=== PATIENT | male | born 1945 | race Hispanic/Latino ===

== ENCOUNTER 2018-06-15 10:30 | Day surgery (SDC) | payer OTHER ==
--- OUTSIDE RECORDS SUMMARY | 2018-06-15 10:32 | XMS REPORT | Clinical Summary ---
:1945 Author Organization [facility] Address [address] [place] [address] Care Team Providers Name Role Phone Asked, No Pcp Primary Care Provider Unavailable Allergies No Known Allergies Current Medications Prescription Sig. Disp. Refills Start Date End Date Status tamsulosin (FLOMAX) 0.4 mg Take 0.4 mg by Active capsule,extended release mouth daily. 24hr olmesartan (BENICAR) 40 MG Take 40 mg by Active tablet mouth daily. niacin 500 MG tablet Take 500 mg by Active mouth daily with breakfast. magnesium oxide 250 mg Take 250 mg by Active tablet mouth daily. Active Problems Problem Noted Date GI bleed 09/17/2016 Gastric cancer (HCC) 05/21/2016 Encounters Date Type Specialty Care Team Description 05/21/2018 Lab Lab Kell Mace MD after 06/14/2017 Immunizations Name Dates Previously Given Next Due INFLUENZA QUAD PF 09/21/2016 Family History Medical History Relation Name Comments Cancer Brother Cancer Mother Cancer Sister Relation Name Status Comments Brother Mother Sister Social History Tobacco Use Types Packs/Day Years Used Date Former Smoker Quit: 2003 Alcohol Use Drinks/Week oz/Week Comments No Sex Assigned at Date Recorded Not on file Last Filed Vital Signs Not on file Plan of Treatment Health Maintenance Due Date Last Done Comments COLON CANCER SCREENING 12/03/1997 SHINGRIX VACCINE (#1) 12/03/1997 ZOSTER VACCINE 2007 PNEUMOCOCCAL POLYSACCHARIDE VACCINE AGE 65 AND OVER 12/03/2012 PNEUMOCOCCAL-13 12/03/2012 INFLUENZA VACCINE 04/01/2018 09/21/2016 Procedures Procedure Name Priority Date/Time Associated Diagnosis Comments TRANSFUSE RED BLOOD Routine 05/06/2018 5:29 PM CDT CELLS after 06/14/2017 Results Transfuse RBC (05/06/2018 5:29 PM)after 06/14/2017 Insurance Payer Benefit Plan / Group Subscriber ID Type Phone Address [facility] xxxxxxxxx O [phone] [place] [phone]
[2018-06-15 10:57] LABS: Absolute Lymphocytes (CBC) 1.1 K/uL (0.7-4.9); Absolute Monocytes 0.4 K/uL (0.1-1.3); Basophils % 0.6 % (0-1.3); Eosinophils % 1.8 % (0-4.4); Hematocrit 39.7 % (39.6-49.0); Lymphocytes % 24.2 % (15.3-44.8); MCH 30.4 pg (27.0-35.0); MCV 89.3 fL (80-100); MPV 7.9 fL (7.6-11.3); Monocytes % 9.4 % (3.3-12.3); RBC Red Blood Cell Count 4.44 M/uL (4.33-5.43)
[2018-06-15 11:12] LABS: BUN Blood Urea Nitrogen 14 mg/dL (7-18); Bicarbonate 33 mmol/L (21-32); Glucose Level 87 mg/dL (74-106); Potassium 3.3 mmol/L (3.5-5.1); Sodium Level 142 mmol/L (136-145)
[2018-06-15] MEDS ORDERED: CEFAZOLIN/SWI 1gm 1 GM/10 ML SYR ONE (11:13)
[2018-06-15] MEDS ORDERED: Ringers Lactate 1,000 ML IV ONE (11:13)
[2018-06-15] MEDS ORDERED: HEPARIN 5000 UNIT/ML 1 ML VIAL ONE (11:37)
[2018-06-15] MEDS ORDERED: NS 0.9% VIAL 10 ML ONE ×2 (11:37→11:39)
[2018-06-15] MEDS ORDERED: LIDOCAINE 1% MPF 30 ML VIAL ONE (11:37)
[2018-06-15] MEDS ORDERED: LIDOCAINE 2% MPF 5 ML VIAL ONE (11:43)
[2018-06-15] MEDS ORDERED: PROPOFOL 200 MG/20 ML VIAL IV ONE ×2 (11:43→12:28)
[2018-06-15] MEDS ORDERED: FENTANYL CITR 100 MCG/2 ML ONE (11:43)
--- NOTE | 2018-06-15 12:47 | RAD REPORT ---
EXAM DESCRIPTION: RAD - Fluoroscopy <1 Hour - 06/15/2018 12:41 pm FINDINGS: Two portable C-arm views were obtained during a fluoroscopic assisted placement of a right -sided Port-A-Cath. Fluoro time was 0.2 minutes. No suspicious or unexpected finding.
--- NOTE | 2018-06-15 13:09 | RAD REPORT ---
EXAM DESCRIPTION: RAD - Chest Single View - 06/15/2018 1:04 pm CLINICAL HISTORY: s/p port a cath placement Chest pain. COMPARISON: Chest Pa And Lat (2 Views) dated 05/07/2016 FINDINGS: Portable technique limits examination quality. Right-sided venous catheter its tip in the SVC. No pneumothorax is present. The lungs are grossly rob ar. The heart is normal in size. No displaced fractures. IMPRESSION: No postprocedure pneumothorax.
--- NOTE | 2018-06-16 | OP ---
Date of Procedure: 06/15/2018 Surgeon: Gregg Mendieta MD Preoperative Diagnosis: Recurrent stomach cancer. Postoperative Diagnosis: Recurrent stomach cancer. Procedure: Placement of right IJ Port-A-Cath and interpretation of intraoperative fluoroscopy. Estimated Blood Loss: Minimal. Specimen: None. Findings: Normal anatomy. Anesthesia: MAC. Complications: None. Disposition: The patient tolerated the procedure well in stable condition and taken to recovery in g ood general condition. Operative Note: The patient was brought to the OR and placed in the supine position. MAC anesthesia was begun. The patient was prepped and draped in the usual sterile fashion. Lidocaine 1% was infil trated locally. An 18-gauge needle was used to access the right IJ vein. Guidewire was passed. Pos ition was confirmed with fluoroscopy. A 3 cm counterincision was made on the right anterior chest. Pocket was created. Tunneling device was used to tunnel the catheter between the 2 wounds and then S eldinger technique was used. Tip of the catheter was placed in the SVC under fluoroscopy and then ca theter was cut to appropriate size and attached to the Port-A-Cath device. Port-A-Cath device was at tached to subcutaneous tissue with 3-0 Vicryl and 3-0 chromic was used to approximate the subcutaneou s tissue and close the skin. Sterile dressing was applied. Catheter was flushed with heparin and pa cked with heparin. The patient tolerated the procedure well in stable condition and taken to recover y in good general condition. Discharge Note: The patient will go to day surgery and home when stable. Disposition: Home. Condition: Stable. Discharge Instructions: Resume home medications and diet. Activity as tolerated. No heavy lifting. Remove outer dressing in 2 days. Shower. Keep wound clean and dry. Keep Steri-Strips on at all t imes. Follow up in my office in 2 weeks. Follow up [facility]. Tylenol No. 3, 1 tablet p.o. q.4 p.r.n. pain. /MODL Voice ID: [id number] Report ID: [id number]
[2018-06-16 14:36] VITALS: BP 132/64; TEMP 97.5; O2SAT 97
== END 2018-06-15 13:50 | disposition home or self-care (01) ==
LOC: OR 10:30
PROVIDERS: ATTEND Surgery
PROC: 0JH60WZ Insertion of Totally Implantable Vascular Access Device into Chest Subcutaneous Tissue and Fascia, Open Approach (ICD-10-PCS; principal; 2018-06-15 12:15)
DX: C16.9 Malignant neoplasm of stomach, unspecified (principal)
CPT/HCPCS: 36415; 36561; 71045; 80048; 85025; C1788; J0690; J1644; J3010; 76000

== ENCOUNTER 2018-11-21 22:58 | Inpatient (IN) | payer OTHER ==
--- OUTSIDE RECORDS SUMMARY | 2018-11-21 23:00 | XMS REPORT | Clinical Summary ---
:1945 Author Organization [facility] Address [address] [place] [address] Care Team Providers Name Role Phone Katrin Schafer MD Primary Care Provider Allergies No Known Allergies Medications Medication Sig Dispensed Refills Start Date End Date Status tamsulosin (FLOMAX) 0.4 Take 0.4 mg by 0 Active mg capsule,extended mouth daily. release 24hr olmesartan (BENICAR) 40 Take 40 mg by 0 Active MG tablet mouth daily. niacin 500 MG tablet Take 500 mg by 0 Active mouth daily with breakfast. magnesium oxide 250 mg Take 250 mg by 0 Active tablet mouth daily. Active Problems Problem Noted Date GI bleed 09/17/2016 Gastric cancer 05/21/2016 Encounters Date Type Specialty Care Team Description 05/21/2018 Lab Lab Kell Mace MD after 11/20/2017 Immunizations Name Dates Previously Given Next Due INFLUENZA QUAD PF 09/21/2016 Family History Medical History Relation Name Comments Cancer Brother Cancer Mother Cancer Sister Relation Name Status Comments Brother Mother Sister Social History Tobacco Use Types Packs/Day Years Used Date Former Smoker Quit: 2003 Alcohol Use Drinks/Week oz/Week Comments No Sex Assigned at Date Recorded Not on file Job Start Date Occupation Industry Not on file Not on file Not on file Travel History Travel Start Travel End No recent travel history available. Last Filed Vital Signs Not on file Plan of Treatment Date Type Specialty Care Team Description 12/07/2018 [place] [address] [facility] [address] [place] [id number] Health Maintenance Due Date Last Done Comments COLON CANCER SCREENING 12/03/1997 SHINGLES VACCINES (#1) 12/03/1997 65+ PNEUMOCOCCAL VACCINE (1 of 2 - PCV13) 12/03/2012 PNEUMOCOCCAL POLYSACCHARIDE VACCINE AGE 65 AND OVER 12/03/2012 INFLUENZA VACCINE 04/01/2018 09/21/2016 Procedures Procedure Name Priority Date/Time Associated Diagnosis Comments TRANSFUSE RED BLOOD Routine 05/06/2018 5:29 PM CDT CELLS after 11/20/2017 Results Transfuse RBC (05/06/2018 5:29 PM CDT)after 11/20/2017 Insurance Payer Benefit Plan / Group Subscriber ID Type Phone Address [facility] xxxxxxxxx HMO Advance Directives Patient has advance care planning documents on file. For more information, please contact:Hemanth Martinez[address] [place] [address]
[2018-11-22] MEDS ORDERED: ACETAMINOPHEN 500 MG TAB ONE (00:06)
[2018-11-22 00:34] LABS: ALT/SGPT 42 U/L (12-78); AST/SGOT 44 U/L (15-37); Albumin 3.2 g/dL (3.4-5.0); Alkaline Phosphatase 205 U/L (45-117); BUN Blood Urea Nitrogen 12 mg/dL (7-18); Bicarbonate 29 mmol/L (21-32); Bilirubin Total 0.9 mg/dL (0.2-1.0); Glucose Level 110 mg/dL (74-106); Potassium 4.1 mmol/L (3.5-5.1); Protein, Total 6.3 g/dL (6.4-8.2); Sodium Level 139 mmol/L (136-145)
[2018-11-22 01:11] LABS: Absolute Lymphocytes (CBC) 0.3 K/uL (0.7-4.9); Absolute Neutrophil 0.3 K/uL (1.8-8.0); Basophils % 1.2 % (0-1.3); Eosinophils % 0.4 % (0-4.4); Hematocrit 36.4 % (39.6-49.0); Lymphocytes % 43.3 % (15.3-44.8); MPV 8.6 fL (7.6-11.3); Monocytes % 4.2 % (3.3-12.3); RBC Red Blood Cell Count 3.78 M/uL (4.33-5.43)
[2018-11-22 01:17] LABS: Blood Morphology Comment NOT SEEN (NOT SEEN); Platelet Estimate DECR
[2018-11-22 02:10] LABS: Urine Appearance CLEAR; Urine Bilirubin NEGATIVE (NEG); Urine Blood NEGATIVE (NEG); Urine Color YELLOW; Urine Glucose NEGATIVE (NEG); Urine Protein TRACE (NEG); Urine Specific Gravity 1.015 (1.005-1.030); Urine pH 7.5 (5.0-7.0)
[2018-11-22 02:21] LABS: Urine Microscopic Reflex NO UMIC
--- NOTE | 2018-11-22 02:25 | EDPHYS ---
Physician Documentation [facility] Name: Zachariah Ball Age: 72 yrs Sex: Male : 1945 Arrival Date: 11/21/2018 Time: 23:02 Bed 15 Private MD: Katrin Schafer ED Physician Otis Barraza HPI: 11/22 04:08 This 72 yrs old Male presents to ER via Ambulatory with complaints of Urinary tw4 Problem, Fever, Weakness. 04:08 The patient reports fever, not measured (subjective). Onset: The symptoms/episode tw4 began/occurred today. Modifying factors: there are no obvious modifying factors. Associated signs and symptoms: Pertinent positives:. Severity of symptoms: At their worst the symptoms were moderate in the emergency department the symptoms are unchanged. The patient has not experienced similar symptoms in the past. Historical: - Allergies: 11/21 23:17 loratadine; jb4 - Home Meds: 23:17 tamsulosin 0.4 mg Oral cp24 1 cap once daily [Active]; sucralfate 1 gram Oral tab jb4 [Active]; amlodipine 2.5 mg tab [Active]; omeprazole 40 mg Oral cpDR [Active]; magnesium oxide 250 mg Oral tab [Active]; niacin 500 mg Oral cpER [Active]; stool softner [Active]; finasteride 5 mg oral tab [Active]; potassium chloride 20 mEq Oral pack [Active]; - PMHx: 23:17 Anemia; Chemo and Radiation Tx (Started August 2016/Diagnosed with Stomach Cancer jb4 May 2016); Hypertension; neuropathy; stomach cancer; ADD/ADHD; - PSHx: 23:17 stomach; jb4 - Immunization history:: Adult Immunizations up to date, Pneumococcal vaccine is up to date, Flu vaccine is not up to date. - Social history:: Smoking status: Patient/guardian denies using tobacco, Patient/guardian denies using alcohol. - Ebola Screening: : No symptoms or risks identified at this time. ROS: 11/22 04:08 Eyes: Negative for injury, pain, redness, and discharge, ENT: Negative for injury, tw4 pain, and discharge, Cardiovascular: Negative for chest pain, palpitations, and edema, Respiratory: Negative for shortness of breath, cough, wheezing, and pleuritic chest pain, Abdomen/GI: Negative for abdominal pain, nausea, vomiting, diarrhea, and constipation, Back: Negative for injury and pain. MS/Extremity: Negative for injury and deformity, Skin: Negative for injury, rash, and discoloration, Neuro: Negative for headache, weakness, numbness, tingling, and seizure. Constitutional: Positive for malaise. : Positive for difficulty urinating. Exam: 04:08 Constitutional: This is a well developed, well nourished patient who is awake, alert, tw4 and in no acute distress. Head/Face: Normocephalic, atraumatic. Cardiovascular: Regular rate and rhythm with a normal S1 and S2. No gallops, murmurs, or rubs. Normal PMI, no JVD. No pulse deficits. Respiratory: Lungs have equal breath sounds bilaterally, clear to auscultation and percussion. No rales, rhonchi or wheezes noted. No increased work of breathing, no retractions or nasal flaring. Abdomen/GI: Soft, non-tender, with normal bowel sounds. No distension or tympany. No guarding or rebound. No evidence of tenderness throughout. Back: No spinal tenderness. No costovertebral tenderness. Full range of motion. MS/ Extremity: Pulses equal, no cyanosis. Neurovascular intact. Full, normal range of motion. Neuro: Awake and alert, GCS 15, oriented to person, place, time, and situation. Cranial nerves II-XII grossly intact. Motor strength 5/5 in all extremities. Sensory grossly intact. Cerebellar exam normal. Normal gait. Vital Signs: 11/21 23:17 BP 153 / 91; Pulse 100; Resp 18; Temp 101.2(O); Pulse Ox 95% on R/A; Weight 67.59 kg jb4 (R); Height 5 ft. 10 in. (177.80 cm) (R); Pain 06/10; 11/22 00:30 BP 129 / 62; Pulse 85; Resp 16; Pulse Ox 96% on R/A; jb4 02:00 BP 113 / 71; Pulse 72; Resp 16; Temp 98.8(O); Pulse Ox 96% on R/A; jb4 03:34 BP 127 / 76; Pulse 73; Resp 16; Pulse Ox 98% on R/A; jb4 11/21 23:17 Body Mass Index 21.38 (67.59 kg, 177.80 cm) jb4 MDM: 11/21 23:13 Patient medically screened. tw11/22 04:10 Differential diagnosis: viral Infection, bacterial infection, URI, bronchitis. Data tw4 reviewed: vital signs, nurses notes. Data interpreted: Pulse oximetry: Interpretation: normal. Counseling: I had a detailed discussion with the patient and/or guardian regarding: the historical points, exam findings, and any diagnostic results supporting the discharge/admit diagnosis, lab results, radiology results. Physician consultation: Makayla Hernandez MD was contacted at 02:50, regarding admission, patient's condition, and will see patient in inpatient room. 11/21 23:40 Order name: CBC with Diff 11/22 01:18 Interpretation: WBC 0.6; RBC 3.78; HGB 12.3; HCT 36.4; MCV 96.3; NEUT A 0.3; PLT 116; tw4 LYMA 0.3; BASO% 1.2. 11/21 23:40 Order name: CMP; Complete Time: 01:17 11/22 01:17 Interpretation: A/G 1.0; CA 8.0; ALK 205; AST 44; TP 6.3; ALB 3.2. 11/22 01:15 Order name: Manual Differential EDMS 11/22 01:20 Order name: Blood Culture Adult (2) 11/22 01:20 Order name: Lactate 11/22 01:28 Order name: Urinalysis 11/22 01:28 Order name: Urine Microscopic Only 11/22 02:07 Order name: Chest Single View XRAY 11/22 04:23 Order name: Urine Dipstick--Ancillary (enter results) ar5 Administered Medications: 11/21 23:58 Drug: Tylenol 1000 mg Route: PO; jb4 11/22 01:00 Follow up: Response: No adverse reaction; Temperature is decreased 4 02:30 Drug: Zosyn 3.375 grams Route: IVPB; Infused Over: 60 mins; Site: right antecubital; jb4 03:30 Follow up: Response: No adverse reaction; IV Status: Completed infusion; IV Intake: jb4 100ml 03:40 Drug: vancoMYCIN 1 grams Route: IVPB; Infused Over: 2 hrs; Site: right antecubital; jb4 04:06 Follow up: Response: No adverse reaction; IV Status: Infusion continued upon admission jb4 Disposition: 11/22/18 02:25 Hospitalization ordered by Makayla Hernandez for Inpatient Admission. Preliminary diagnosis are Neutropenia, unspecified, Fever, unspecified. - Bed requested for Telemetry/MedSurg (Inpatient). - Status is Inpatient Admission. jb4 - Condition is Fair. - Problem is new. - Symptoms are unchanged. UTI on Admission? No Signatures: Dispatcher [employer] EDBlessing Erazo, RN RN Yogesh Covarrubias RN RN jb4 Otis Barraza MD MD 4 Corrections: (The following items were deleted from the chart) 01:18 01:18 WBC 0.6; RBC 3.78; HGB 12.3; HCT 36.4; MCV 96.3; NEUT A 0.3; PLT 116. tw4 tw4 03:10 02:25 Hospitalization Ordered by Makayla Hernandez MD for Inpatient Admission. Preliminary cg diagnosis is Neutropenia, unspecified; Fever, unspecified. Bed requested for Telemetry/MedSurg (Inpatient). Status is Inpatient Admission. Condition is Fair. Problem is new. Symptoms are unchanged. UTI on Admission? No. tw4 04:27 03:10 11/22/2018 02:25 Hospitalization Ordered by Makayla Hernandez MD for Inpatient jb4 Admission. Preliminary diagnosis is Neutropenia, unspecified; Fever, unspecified. Bed requested for Telemetry/MedSurg (Inpatient). Status is Inpatient Admission. Condition is Fair. Problem is new. Symptoms are unchanged. UTI on Admission? No. cg
--- NOTE | 2018-11-22 02:25 | ER ---
Nurse's Notes [facility] Name: Zachariah Ball Age: 72 yrs Sex: Male : 1945 Arrival Date: 11/21/2018 Time: 23:02 Bed 15 Private MD: Katrin Schafer Diagnosis: Neutropenia, unspecified;Fever, unspecified Presentation: 11/21 23:17 Presenting complaint: Patient states: I have been unable to urinate since 1500 today. jb4 Transition of care: patient was not received from another setting of care. 23:17 Method Of Arrival: Ambulatory jb4 23:17 Onset of symptoms was November 21, 2018. Risk Assessment: Do you want to hurt yourself or jb4 someone else? Patient reports no desire to harm self or others. Initial Sepsis Screen: Does the patient meet any 2 criteria? Temp <36.0*C (96.8*F)) or > 38.3*C (100.9*F). HR > 90 bpm. Yes Does the patient have a suspected source of infection? No. Patient's initial sepsis screen is negative. Care prior to arrival: None. 23:17 Acuity: MONSE 3 jb4 Historical: - Allergies: 23:17 loratadine; jb4 - Home Meds: 23:17 tamsulosin 0.4 mg Oral cp24 1 cap once daily [Active]; sucralfate 1 gram Oral tab jb4 [Active]; amlodipine 2.5 mg tab [Active]; omeprazole 40 mg Oral cpDR [Active]; magnesium oxide 250 mg Oral tab [Active]; niacin 500 mg Oral cpER [Active]; stool softner [Active]; finasteride 5 mg oral tab [Active]; potassium chloride 20 mEq Oral pack [Active]; - PMHx: 23:17 Anemia; Chemo and Radiation Tx (Started August 2016/Diagnosed with Stomach Cancer jb4 May 2016); Hypertension; neuropathy; stomach cancer; ADD/ADHD; - PSHx: 23:17 stomach; jb4 - Immunization history:: Adult Immunizations up to date, Pneumococcal vaccine is up to date, Flu vaccine is not up to date. - Social history:: Smoking status: Patient/guardian denies using tobacco, Patient/guardian denies using alcohol. - Ebola Screening: : No symptoms or risks identified at this time. Screenin:17 Abuse screen: Denies threats or abuse. Nutritional screening: No deficits noted. jb4 Tuberculosis screening: No symptoms or risk factors identified. Fall Risk IV access (20 points). Ambulatory Aid- Crutches/Cane/Walker (15 pts). Gait- Normal/Bed Rest/Wheelchair (0 pts) Total Sotomayor Fall Scale indicates Low Risk Score (25-44 pts). Fall prevention measures have been instituted. Side Rails Up X 2 Placed close to Nursing Station Frequent Obs/Assesments occuring Family Present and informed to notify staff if they need to leave bedside. Assessment: 23:30 General: Appears uncomfortable, Behavior is calm, cooperative, appropriate for age. jb4 Pain: Complains of pain in groin, headache Pain does not radiate. Pain currently is 10 out of 10 on a pain scale. Neuro: Level of Consciousness is awake, alert, obeys commands, Oriented to person, place, time, situation. Cardiovascular: Patient's skin is warm and dry. Respiratory: Airway is patent Respiratory effort is even, unlabored, Respiratory pattern is regular, symmetrical. GI: No signs and/or symptoms were reported involving the gastrointestinal system. : Parent/caregiver report the patient having inability to void since 1500. EENT: No signs and/or symptoms were reported regarding the EENT system. Derm: Skin is intact, Skin is pink, warm \T\ dry. Musculoskeletal: Circulation, motion, and sensation intact. 11/22 00:30 Reassessment: Patient appears in no apparent distress at this time. Patient and/or jb4 family updated on plan of care and expected duration. Pain level reassessed. Patient is alert, oriented x 3, equal unlabored respirations, skin warm/dry/pink. Patient states feeling better. 01:30 Reassessment: Patient appears in no apparent distress at this time. Patient and/or jb4 family updated on plan of care and expected duration. Pain level reassessed. Patient is alert, oriented x 3, equal unlabored respirations, skin warm/dry/pink. 02:30 Reassessment: Patient appears in no apparent distress at this time. Patient and/or jb4 family updated on plan of care and expected duration. Pain level reassessed. Patient is alert, oriented x 3, equal unlabored respirations, skin warm/dry/pink. 03:30 Reassessment: Patient appears in no apparent distress at this time. Patient and/or jb4 family updated on plan of care and expected duration. Pain level reassessed. Patient is alert, oriented x 3, equal unlabored respirations, skin warm/dry/pink. Vital Signs: 11/21 23:17 BP 153 / 91; Pulse 100; Resp 18; Temp 101.2(O); Pulse Ox 95% on R/A; Weight 67.59 kg jb4 (R); Height 5 ft. 10 in. (177.80 cm) (R); Pain 10/10; 11/22 00:30 BP 129 / 62; Pulse 85; Resp 16; Pulse Ox 96% on R/A; jb4 02:00 BP 113 / 71; Pulse 72; Resp 16; Temp 98.8(O); Pulse Ox 96% on R/A; jb4 03:34 BP 127 / 76; Pulse 73; Resp 16; Pulse Ox 98% on R/A; jb4 11/21 23:17 Body Mass Index 21.38 (67.59 kg, 177.80 cm) jb4 ED Course: 11/21 23:02 Patient arrived in ED. mr 23:03 Katrin Schafer MD is Private Physician. mr 23:13 Otis Barraza MD is Attending Physician. tw4 23:17 Arm band placed on left wrist. jb4 23:17 Patient has correct armband on for positive identification. Bed in low position. Call jb4 light in reach. Side rails up X 1. 23:24 Yogesh Covarrubias, RN is Primary Nurse. jb4 23:29 Triage completed. jb4 11/22 01:15 Notified ED physician of a critical lab result(s). WBCs of 0.6. Dr Barraza notified. bb 01:30 Inserted saline lock: 20 gauge in right forearm, using aseptic technique. Blood jb4 collected. 01:30 Initial lab(s) drawn, by ri, sent to lab. First set of blood cultures drawn by ri. jb4 01:45 Second set of blood cultures drawn by ri. jb4 02:12 Makayla Hernandez MD is Hospitalizing Provider. tw4 04:04 No provider procedures requiring assistance completed. IV discontinued, intact, jb4 bleeding controlled, No redness/swelling at site. Pressure dressing applied. Administered Medications: 11/21 23:58 Drug: Tylenol 1000 mg Route: PO; jb4 11/22 01:00 Follow up: Response: No adverse reaction; Temperature is decreased jb4 02:30 Drug: Zosyn 3.375 grams Route: IVPB; Infused Over: 60 mins; Site: right antecubital; jb4 03:30 Follow up: Response: No adverse reaction; IV Status: Completed infusion; IV Intake: jb4 100ml 03:40 Drug: vancoMYCIN 1 grams Route: IVPB; Infused Over: 2 hrs; Site: right antecubital; jb4 04:06 Follow up: Response: No adverse reaction; IV Status: Infusion continued upon admission jb4 Intake: 03:30 IV: 100ml; Total: 100ml. jb4 Outcome: 02:25 Decision to Hospitalize by Provider. tw4 04:04 Admitted to Tele accompanied by nurse, via stretcher, room 427, with chart, Report jb4 called to JULIO Lugo 04:04 Condition: stable 04:04 Discharge instructions given to patient, family, Instructed on the need for admit, Demonstrated understanding of instructions. 04:27 Patient left the ED. jb4 Signatures: Nyasia Bonner mr Nadia Valdes RN Yogesh Taylor RN RN jb4 Otis Barraza MD MD tw4 Corrections: (The following items were deleted from the chart) 11/21 23:29 23:24 Presenting complaint: 4 4 11/22 02:23 02:00 BP 113 / 71; Pulse 72bpm; Resp 16bpm; Pulse Ox 96% RA; jb4 jb4 03:32 03:00 BP 129 / 86; Pulse 76bpm; Resp 16bpm; Pulse Ox 98% RA; jb4 jb4
[2018-11-22] MEDS ORDERED: VANCOMYCIN 1 GM/VIAL ONE (02:31)
[2018-11-22] MEDS ORDERED: PIPER/TAZO/NS 3.375gm 3.375 GM/100 ML BAG ONE (02:32)
[2018-11-22] MEDS ORDERED: NA CHLORIDE 0.9% 250 ML ONE (02:32)
[2018-11-22 02:36] LABS: Urine Bacteria <20 /HPF (NONE SEEN); Urine Culture Reflex Order NOT NEEDED; Urine RBC <5 /HPF (NONE SEEN)
--- NOTE | 2018-11-22 03:09 | P.HP ---
Certification for Inpatient Patient admitted to: Inpatient With expected LOS: >2 Midnights Practitioner: I am a practitioner with admitting privileges, knowledge of patient current condition, hospital course, and medical plan of care. Services: Services provided to patient in accordance with Admission requirements found in Title 42 Section 412.3 of the Code of Federal Regulations Patient History Date of Service: 11/22/18 Reason for admission: neutropenic fever History of Present Illness: Mr Ball is a 72 years old male with history of HTN, stomach cancer diagnosed on 2015, s/p radiation therapy, currently on chemotherapy treatment under Dr Leon, last round about 5 days ago. He came to ED because he was unable to urinate since this afternoon around 1500. He had lower abdominal pain, which relieves after had place a ziegler catheter. Initially was drained 600 ml. He was also complaining of weakness and chills but no fever. All his symptoms started yesterday afternoon. He denied nausea, vomiting, diarrhea, SOB or chest pain. Lab work remarkable for neutropenia WBC 0.6. CXR no acute infiltrate, UA mostly unremarkable. Allergies No Known Allergies Allergy (Verified 06/15/18 10:35) Home medications list reviewed: Yes Home Medications: Tamsulosin HCl [Flomax] 0.4 mg PO DAILY 09/08/16 Sucralfate [Carafate*] 1 gm PO QID #1200 ml 09/15/16 Amlodipine [Norvasc*] 2.5 mg PO DAILY 06/15/18 Docusate Sodium [Stool Softener] 1 tab PO BID 06/15/18 Finasteride 5 mg PO DAILY 06/15/18 Loratadine 10 mg PO DAILY 06/15/18 Magnesium Oxide [Magnesium] 1 tab PO DAILY 06/15/18 Niacin (Inositol Niacinate) [Niacin 500 mg Capsule] 500 mg PO DAILY 06/15/18 Omeprazole [Prilosec] 40 mg PO DAILY 06/15/18 - Past Medical/Surgical History Diabetic: No -: HTN -: HYPERLIPIDEMIA -: PROSTATE ENLARGEMENT -: stomach cancer -: neuropathy -: ARTHROSCOPY -: stomach sx - Family History Sister -: Cancer Notes: STOMACH CANCER MOM -: Cancer Notes: STOMACH CANCER DAD -: Cancer Notes: PROSTATE CANCER - Social History Smoking Status: Former smoker Alcohol use: No CD- Drugs: No Caffeine use: No Place of Residence: Home Review of Systems 10-point ROS is otherwise unremarkable Physical Examination - Physical Exam General: Alert, In no apparent distress HEENT: Atraumatic, PERRLA, Mucous membr. moist/pink, EOMI, Sclerae nonicteric Neck: Supple, 2+ carotid pulse no bruit, No LAD, Without JVD or thyroid abnormality Respiratory: Clear to auscultation bilaterally, Normal air movement Cardiovascular: Regular rate/rhythm, Normal S1 S2 Gastrointestinal: Normal bowel sounds, No tenderness Musculoskeletal: No tenderness Integumentary: No rashes Neurological: Normal speech, Normal strength at 5/5 x4 extr, Normal tone, Normal affect Lymphatics: No axilla or inguinal lymphadenopathy - Studies Laboratory Data (last 24 hrs) 11/22/18 01:00: WBC 0.6 L*, Hgb 12.3 L, Hct 36.4 L, Plt Count 116 L 11/22/18 00:00: Sodium 139, Potassium 4.1, BUN 12, Creatinine 0.53 L, Glucose 110 H, Total Bilirubin 0.9, AST 44 H, ALT 42, Alkaline Phosphatase 205 H Assessment and Plan - Problems (Diagnosis) (1) Neutropenic fever Current Visit: Yes Status: Acute (2) HTN (hypertension) Current Visit: Yes Status: Acute Qualifiers: Hypertension type: essential hypertension Qualified Code(s): I10 - Essential (primary) hypertension (3) Gastric cancer Current Visit: No Status: Chronic Qualifiers: Malignant neoplasm of stomach location: body of stomach Qualified Code(s): C16.2 - Malignant neoplasm of body of stomach - Plan Will admit the patient to the hospital due to neutropenic fever, no clear source yet. Will start empiric therapy with Cefepime. Also order Granix, consult Dr Leon for evaluation and recommendations. The patient is clinically and hemodynamically stable. - Advance Directives Does patient have a Living Will: No Does patient have a Durable POA for Healthcare: No - Code Status/Comfort Care Code Status Assessed: Yes Code Status: Full Code
[2018-11-22] MEDS ORDERED: CEFEPIME 2 GM VIAL IV SCH (04:21)
[2018-11-22] MEDS ORDERED: TBO-FILGRASTIM 300 MCG/0.5 ML SYR SQ ONE (04:21)
[2018-11-22] MEDS ORDERED: ONDANSETRON 4 MG/2 ML VIAL IV PRN (04:21)
[2018-11-22 05:06] LABS: Urine Glucose NEGATIVE (NEG)
[2018-11-22 05:07] LABS: Urine Blood TRACE (NEG); Urine Protein 1+ (NEG); Urine pH 7.5 (5.0-7.0)
[2018-11-22 05:22] VITALS: BMI 21.4
[2018-11-22] MEDS: NA CHLORIDE 0.9% 1,000 ML IV SCH ×3 (06:29→21:38)
[2018-11-22 07:14] LABS: BUN Blood Urea Nitrogen 13 mg/dL (7-18); Bicarbonate 28 mmol/L (21-32); Glucose Level 95 mg/dL (74-106); Potassium 3.9 mmol/L (3.5-5.1); Sodium Level 139 mmol/L (136-145)
[2018-11-22] MEDS: AMLODIPINE 2.5 MG TAB PO SCH (08:44)
[2018-11-22] MEDS: FINASTERIDE 5 MG TAB PO SCH (08:45)
[2018-11-22] MEDS: TAMSULOSIN 0.4 MG SR CAP PO SCH (08:45)
[2018-11-22] MEDS: SUCRALFATE 1GM/10ML UCUP PO SCH ×4 (08:50→21:35)
[2018-11-22] MEDS: ACETAMINOPHEN 500 MG TAB PO PRN ×2 (08:50→18:21)
[2018-11-22] MEDS: CEFEPIME/SWI 2gm 2 GM/20 ML SYR IVP SCH ×2 (08:51→16:34)
[2018-11-22] MEDS ORDERED: HOME MED 1 EA UNK (Loratadine [Loratadine] 10 MG) PO SCH (09:00)
[2018-11-22] MEDS: HOME MED 1 EA UNK (Omeprazole [Prilosec] 40 MG) PO SCH (09:00)
[2018-11-22] MEDS: HOME MED 1 EA UNK (Magnesium Oxide [Magnesium] 250 MG) PO SCH (09:00)
[2018-11-22] MEDS ORDERED: HOME MED 1 EA UNK (Fluticasone Propionate [Flonase Allergy Relief] 1 SPRAY) IH SCH (09:00)
--- NOTE | 2018-11-22 09:52 | P.PN ---
Subjective Date of Service: 11/22/18 Primary Care Provider: Dr. Dawkins; Oncology-Dr. Leon Chief Complaint: neutropenic fever Subjective: Other (Patient doing well this morning. Still with fever. at bedside.) Physical Examination - Vital Signs Temperature: 101.3 F Blood Pressure: 136/84 Pulse: 97 Respirations: 20 Pulse Ox (%): 94 - Physical Exam General: Alert, In no apparent distress, Oriented x3, Cooperative HEENT: Atraumatic Neck: Supple Respiratory: Clear to auscultation bilaterally, Normal air movement Cardiovascular: Normal pulses, Regular rate/rhythm Gastrointestinal: Normal bowel sounds, Soft and benign, Non-distended, No tenderness, No masses, No rebound, No guarding Musculoskeletal: Other (Patient feels warm to touch.) Neurological: Normal speech, Normal strength at 5/5 x4 extr, Normal tone, Normal affect Urinary: Schmitt catheter - Studies Laboratory Data (last 24 hrs) 11/22/18 01:00: WBC 0.6 L*, Hgb 12.3 L, Hct 36.4 L, Plt Count 116 L 11/22/18 00:00: Sodium 139, Potassium 4.1, BUN 12, Creatinine 0.53 L, Glucose 110 H, Total Bilirubin 0.9, AST 44 H, ALT 42, Alkaline Phosphatase 205 H Medications List Reviewed: Yes Assessment & Plan Discharge Plan: Home Plan to discharge in: Greater than 2 days Physician Review Additional Text: Impression: Neutropenic fever likely related to UTI complicated with urinary retention now with Schmitt catheter History of stomach cancer with recent chemotherapy Hypertension Hyperlipidemia Anemia and thrombocytopenia likely chronic Plan: Neutropenic fever likely related to UTI complicated with urinary retention now with Shcmitt catheter with history of BPH: Patient now with Schmitt catheter. Patient with underlying history of BPH. Restart home medication. Patient on IV antibiotic coverage. Continue IV fluid hydration. Continue to monitor CBC closely. Patient received Neupogen last night. Urine, blood cultures obtained. Will discuss case further with hematology/oncology. Will provide Tylenol as needed for fever. Provide ice packs to help with fever as well. Will provide universal precautions. I will turn the service over to Dr. Lewis tomorrow. I will go over plan of care with her. History of stomach cancer with recent chemotherapy: Patient with history of stomach cancer in surgery in the past. Patient with recent chemotherapy. Will discuss case further with hematology/oncology. Hypertension: Restart home medication. Hyperlipidemia: Restart home medication. Anemia and thrombocytopenia likely chronic: Will monitor CBC closely. Will provide DVT prophylaxis. Time Spent Managing Pts Care (In Minutes): 55
[2018-11-22] MEDS: ENOXAPARIN 40 MG/0.4 ML SQ SCH (10:07)
--- NOTE | 2018-11-22 10:09 | RAD REPORT ---
EXAM DESCRIPTION: RAD - Chest Single View - 11/22/2018 8:19 am CLINICAL HISTORY: FEVER Chest pain. COMPARISON: Chest Single View dated 06/15/2018; Chest Pa And Lat (2 Views) dated 05/07/2016 FINDINGS: Portable technique limits examination quality. The lungs are emphysematous but grossly clear. The heart is normal in size. No displaced fractures.Ri ght-sided port catheter tip in SVC. IMPRESSION: No acute intrathoracic process suspected.
[2018-11-22 10:58] LABS: Absolute Lymphocytes (CBC) 0.4 K/uL (0.7-4.9); Absolute Neutrophil 0.2 K/uL (1.8-8.0); Basophils % 0.5 % (0-1.3); Eosinophils % 0.4 % (0-4.4); Hematocrit 32.6 % (39.6-49.0); Lymphocytes % 63.7 % (15.3-44.8); MPV 9.3 fL (7.6-11.3); Monocytes % 5.4 % (3.3-12.3); RBC Red Blood Cell Count 3.37 M/uL (4.33-5.43)
[2018-11-22] MEDS: DOCUSATE SODIUM PO SCH (16:33)
[2018-11-22] MEDS: NIACIN 500 MG SR TAB PO SCH (16:37)
[2018-11-22] MEDS ORDERED: HOME MED 1 EA UNK (Niacin [Niacin] 500 MG) PO SCH (17:00)
[2018-11-22] MEDS ORDERED: POTASSIUM CL SA 10 MEQ TAB PO ONE (21:00)
[2018-11-23] MEDS: NA CHLORIDE 0.9% 1,000 ML IV SCH ×3 (00:09→21:07)
[2018-11-23] MEDS: CEFEPIME/SWI 2gm 2 GM/20 ML SYR IVP SCH ×3 (00:41→17:00)
[2018-11-23 04:45] LABS: Hematocrit 33.8 % (39.6-49.0)
[2018-11-23 04:46] LABS: Absolute Lymphocytes (CBC) 0.6 K/uL (0.7-4.9); Absolute Monocytes 0.1 K/uL (0.1-1.3); Absolute Neutrophil 0.5 K/uL (1.8-8.0); Basophils % 0.5 % (0-1.3); Lymphocytes % 52.2 % (15.3-44.8); MPV 10.2 fL (7.6-11.3); Monocytes % 6.8 % (3.3-12.3)
[2018-11-23 05:07] LABS: BUN Blood Urea Nitrogen 14 mg/dL (7-18); Bicarbonate 26 mmol/L (21-32); Glucose Level 85 mg/dL (74-106); Magnesium 2.1 mg/dL (1.8-2.4); Sodium Level 137 mmol/L (136-145)
[2018-11-23] MEDS: guaiFENesin 100 MG/5 ML UCUP PO PRN ×2 (06:26→17:26)
[2018-11-23] MEDS: TBO-FILGRASTIM 480 MCG/0.8 ML SYR SQ SCH (08:18)
[2018-11-23] MEDS: SUCRALFATE 1GM/10ML UCUP PO SCH ×4 (08:18→21:07)
[2018-11-23] MEDS: AMLODIPINE 2.5 MG TAB PO SCH (08:19)
[2018-11-23] MEDS: ENOXAPARIN 40 MG/0.4 ML SQ SCH (08:19)
[2018-11-23] MEDS: FINASTERIDE 5 MG TAB PO SCH (08:19)
[2018-11-23] MEDS: LORATADINE 10 MG TAB PO SCH (08:19)
[2018-11-23] MEDS: HOME MED 1 EA UNK (Magnesium Oxide [Magnesium] 250 MG) PO SCH (08:20)
[2018-11-23] MEDS: HOME MED 1 EA UNK (Omeprazole [Prilosec] 40 MG) PO SCH (08:21)
[2018-11-23] MEDS: TAMSULOSIN 0.4 MG SR CAP PO SCH ×2 (08:21→17:20)
--- NOTE | 2018-11-23 14:01 | P.PN ---
Subjective Date of Service: 11/23/18 Primary Care Provider: Dr. Dawkins; Oncology-Dr. Leon Chief Complaint: neutropenic fever Subjective: No C/O voiced, Improving Patient seen and examined at bedside. Daughter and at bedside. Chart reviewed and case discussed with Dr. Domingo. No acute events noted overnight. Patient states he feels much better than yesterday. Review of Systems 10-point ROS is otherwise unremarkable Physical Examination - Vital Signs Temperature: 98.6 F Blood Pressure: 136/70 Pulse: 69 Respirations: 18 Pulse Ox (%): 97 - Physical Exam General: Alert, In no apparent distress, Oriented x3 HEENT: Atraumatic, PERRLA, EOMI Neck: Supple, JVD not distended Respiratory: Clear to auscultation bilaterally, Normal air movement Cardiovascular: Regular rate/rhythm, Normal S1 S2 Gastrointestinal: Normal bowel sounds, No tenderness Musculoskeletal: No tenderness Integumentary: No rashes Neurological: Normal speech, Normal tone, Normal affect Urinary: Schmitt catheter - Studies Medications List Reviewed: Yes Assessment And Plan - Current Problems (Diagnosis) (1) HTN (hypertension) Current Visit: Yes Status: Acute Qualifiers: Hypertension type: essential hypertension Qualified Code(s): I10 - Essential (primary) hypertension (2) Neutropenic fever Current Visit: Yes Status: Acute (3) Anemia Current Visit: No Status: Acute Qualifiers: Anemia type: iron deficiency Iron deficiency anemia type: chronic blood loss Qualified Code(s): D50.0 - Iron deficiency anemia secondary to blood loss (chronic) (4) Gastric cancer Current Visit: No Status: Chronic Qualifiers: Malignant neoplasm of stomach location: body of stomach Qualified Code(s): C16.2 - Malignant neoplasm of body of stomach (5) Urinary retention Current Visit: Yes Status: Acute (6) BPH (benign prostatic hyperplasia) Current Visit: Yes Status: Chronic Qualifiers: Lower urinary tract symptom presence: symptoms present Lower urinary tract symptom detail: urinary retention Qualified Code(s): N40.1 - Benign prostatic hyperplasia with lower urinary tract symptoms; R33.8 - Other retention of urine - Plan Neutropenic fever likely related to UTI Continue IV antibiotic coverage Continue IVF Patient is s/p 2 doses neupogen. We will continue neupogen, monitor CBC Pending cultures. Urinary retention now with Schmitt catheter History of BPH Patient now with Schmitt catheter. Patient with underlying history of BPH. Restart home medication. History of stomach cancer with recent chemotherapy Patient with history of stomach cancer in surgery in the past. Patient with recent chemotherapy. Discussed with Dr. Domingo. Hypertension Restart home medication. Hyperlipidemia Restart home medication. Anemia and thrombocytopenia likely chronic Will monitor CBC closely. DVT Prophylaxis: Lovenox GI prophylaxis: None Diet: Regular Disposition: Pending cultures and symptomatic improvement.
[2018-11-23] MEDS: DOCUSATE SODIUM PO SCH (17:00)
[2018-11-23] MEDS: NIACIN 500 MG SR TAB PO SCH (17:20)
[2018-11-24] MEDS: CEFEPIME/SWI 2gm 2 GM/20 ML SYR IVP SCH ×3 (00:59→18:20)
[2018-11-24 04:29] LABS: Absolute Lymphocytes (CBC) 0.6 K/uL (0.7-4.9); Absolute Monocytes 0.3 K/uL (0.1-1.3); Absolute Neutrophil 0.9 K/uL (1.8-8.0); Basophils % 1.3 % (0-1.3); Eosinophils % 3.1 % (0-4.4); Hematocrit 32.4 % (39.6-49.0); MPV 9.6 fL (7.6-11.3); Monocytes % 13.8 % (3.3-12.3); RBC Red Blood Cell Count 3.37 M/uL (4.33-5.43)
[2018-11-24 04:36] LABS: BUN Blood Urea Nitrogen 11 mg/dL (7-18); Bicarbonate 27 mmol/L (21-32); Glucose Level 86 mg/dL (74-106); Magnesium 1.9 mg/dL (1.8-2.4); Potassium 3.8 mmol/L (3.5-5.1); Sodium Level 143 mmol/L (136-145)
[2018-11-24] MEDS: PANTOPRAZOLE 40MG TABLET PO SCH (05:22)
[2018-11-24] MEDS: NA CHLORIDE 0.9% 1,000 ML IV SCH ×3 (05:22→23:59)
[2018-11-24] MEDS: HOME MED 1 EA UNK (Magnesium Oxide [Magnesium] 250 MG) PO SCH (09:00)
[2018-11-24] MEDS: LORATADINE 10 MG TAB PO SCH (10:09)
[2018-11-24] MEDS: FINASTERIDE 5 MG TAB PO SCH (10:09)
[2018-11-24] MEDS: TAMSULOSIN 0.4 MG SR CAP PO SCH (10:09)
[2018-11-24] MEDS: AMLODIPINE 2.5 MG TAB PO SCH (10:09)
[2018-11-24] MEDS: SUCRALFATE 1GM/10ML UCUP PO SCH ×4 (10:09→21:13)
[2018-11-24] MEDS: ENOXAPARIN 40 MG/0.4 ML SQ SCH (10:10)
[2018-11-24] MEDS: TBO-FILGRASTIM 480 MCG/0.8 ML SYR SQ SCH (10:10)
--- NOTE | 2018-11-24 14:29 | P.PN ---
Subjective Date of Service: 11/24/18 Primary Care Provider: Dr. Dawkins; Oncology-Dr. Leon Chief Complaint: neutropenic fever Subjective: No C/O voiced, Improving Patient seen and examined at bedside. Daughter and at bedside. Chart reviewed and case discussed with Dr. Domingo. No acute events noted overnight. Patient states he feels well. Review of Systems 10-point ROS is otherwise unremarkable Physical Examination - Vital Signs Temperature: 98.3 F Blood Pressure: 144/75 Pulse: 63 Respirations: 16 Pulse Ox (%): 97 - Physical Exam General: Alert, In no apparent distress, Oriented x3 HEENT: Atraumatic, PERRLA, EOMI Neck: Supple, JVD not distended Respiratory: Clear to auscultation bilaterally, Normal air movement Cardiovascular: Regular rate/rhythm, Normal S1 S2 Gastrointestinal: Normal bowel sounds, No tenderness Musculoskeletal: No tenderness Integumentary: No rashes Neurological: Normal speech, Normal tone, Normal affect Lymphatics: No axilla or inguinal lymphadenopathy - Studies Medications List Reviewed: Yes Assessment And Plan - Current Problems (Diagnosis) (1) HTN (hypertension) Current Visit: Yes Status: Acute Qualifiers: Hypertension type: essential hypertension Qualified Code(s): I10 - Essential (primary) hypertension (2) Neutropenic fever Current Visit: Yes Status: Acute (3) Anemia Current Visit: No Status: Acute Qualifiers: Anemia type: iron deficiency Iron deficiency anemia type: chronic blood loss Qualified Code(s): D50.0 - Iron deficiency anemia secondary to blood loss (chronic) (4) Gastric cancer Current Visit: No Status: Chronic Qualifiers: Malignant neoplasm of stomach location: body of stomach Qualified Code(s): C16.2 - Malignant neoplasm of body of stomach (5) Urinary retention Current Visit: Yes Status: Acute (6) BPH (benign prostatic hyperplasia) Current Visit: Yes Status: Chronic Qualifiers: Lower urinary tract symptom presence: symptoms present Lower urinary tract symptom detail: urinary retention Qualified Code(s): N40.1 - Benign prostatic hyperplasia with lower urinary tract symptoms; R33.8 - Other retention of urine - Plan Neutropenic fever likely related to UTI Continue IV antibiotic coverage Continue IVF Patient is s/p 3 doses neupogen. We will continue neupogen, monitor CBC. Hold neupogen tomorrow if ANC greater than 1000. (ANC 980 today) Pending cultures. NG24 Urinary retention now with Ziegler catheter History of BPH Remove ziegler catheter today to see how patient voids without the catheter. Patient with underlying history of BPH. Restart home medication. History of stomach cancer with recent chemotherapy Patient with history of stomach cancer w/ surgery in the past. Patient with recent chemotherapy. Discussed with Dr. Domingo. Hypertension Restart home medication. Hyperlipidemia Restart home medication. Anemia and thrombocytopenia likely chronic Will monitor CBC closely. DVT Prophylaxis: Lovenox GI prophylaxis: None Diet: Regular Disposition: Pending cultures and symptomatic improvement. If numbers remain stable and patient remain a febrile overnight, possible discharge tomorrow am. Physician Review Additional Text: Impression: Neutropenic fever likely related to UTI complicated with urinary retention now with Ziegler catheter History of stomach cancer with recent chemotherapy Hypertension Hyperlipidemia Anemia and thrombocytopenia likely chronic Plan: Neutropenic fever likely related to UTI complicated with urinary retention now with Ziegler catheter with history of BPH: Patient now with Ziegler catheter. Patient with underlying history of BPH. Restart home medication. Patient on IV antibiotic coverage. Continue IV fluid hydration. Continue to monitor CBC closely. Patient received Neupogen last night. Urine, blood cultures obtained. Will discuss case further with hematology/oncology. Will provide Tylenol as needed for fever. Provide ice packs to help with fever as well. Will provide universal precautions. I will turn the service over to Dr. Lewis tomorrow. I will go over plan of care with her. History of stomach cancer with recent chemotherapy: Patient with history of stomach cancer in surgery in the past. Patient with recent chemotherapy. Will discuss case further with hematology/oncology. Hypertension: Restart home medication. Hyperlipidemia: Restart home medication. Anemia and thrombocytopenia likely chronic: Will monitor CBC closely. Will provide DVT prophylaxis.
[2018-11-24] MEDS: DOCUSATE SODIUM PO SCH (17:00)
[2018-11-24] MEDS: NIACIN 500 MG SR TAB PO SCH (18:20)
[2018-11-25] MEDS: PANTOPRAZOLE 40MG TABLET PO SCH (05:43)
[2018-11-25 06:34] LABS: Absolute Lymphocytes (CBC) 0.8 K/uL (0.7-4.9); Absolute Monocytes 0.4 K/uL (0.1-1.3); Absolute Neutrophil 2.9 K/uL (1.8-8.0); Basophils % 1.1 % (0-1.3); Eosinophils % 2.8 % (0-4.4); Hematocrit 32.2 % (39.6-49.0); Lymphocytes % 18.1 % (15.3-44.8); Monocytes % 8.4 % (3.3-12.3); RBC Red Blood Cell Count 3.37 M/uL (4.33-5.43)
[2018-11-25 06:55] LABS: BUN Blood Urea Nitrogen 6 mg/dL (7-18); Bicarbonate 29 mmol/L (21-32); Glucose Level 81 mg/dL (74-106); Magnesium 1.8 mg/dL (1.8-2.4); Potassium 3.4 mmol/L (3.5-5.1); Sodium Level 142 mmol/L (136-145)
[2018-11-25 07:58] VITALS: O2SAT 96
[2018-11-25] MEDS: CEFEPIME/SWI 2gm 2 GM/20 ML SYR IVP SCH ×3 (08:01→16:26)
[2018-11-25] MEDS: TBO-FILGRASTIM 480 MCG/0.8 ML SYR SQ SCH (08:01)
[2018-11-25] MEDS: ENOXAPARIN 40 MG/0.4 ML SQ SCH (08:01)
[2018-11-25] MEDS: AMLODIPINE 2.5 MG TAB PO SCH (08:02)
[2018-11-25] MEDS: SUCRALFATE 1GM/10ML UCUP PO SCH ×3 (08:02→16:26)
[2018-11-25] MEDS: TAMSULOSIN 0.4 MG SR CAP PO SCH (08:02)
[2018-11-25] MEDS: LORATADINE 10 MG TAB PO SCH (08:03)
[2018-11-25] MEDS: FINASTERIDE 5 MG TAB PO SCH (08:03)
[2018-11-25] MEDS: ACETAMINOPHEN 500 MG TAB PO PRN ×2 (08:03)
[2018-11-25] MEDS: HOME MED 1 EA UNK (Magnesium Oxide [Magnesium] 250 MG) PO SCH (08:04)
[2018-11-25] MEDS ORDERED: MAGNESIUM SULFATE 1 gm IVPB 1 GM/100 ML BAG IV ONE (09:00)
[2018-11-25] MEDS ORDERED: POTASSIUM CL SA 10 MEQ TAB PO ONE (09:00)
[2018-11-25] MEDS: NA CHLORIDE 0.9% 1,000 ML IV SCH (11:54)
[2018-11-25] MEDS: DOCUSATE SODIUM PO SCH (16:26)
[2018-11-25] MEDS: NIACIN 500 MG SR TAB PO SCH (16:32)
[2018-11-25 16:53] VITALS: BP 150/73; TEMP 98.3
--- NOTE | 2018-11-25 17:58 | P.DS ---
Admission Date: 11/22/18 Discharge Date: 11/25/18 Primary Care Provider: Dr. Dawkins; Oncology-Dr. Leon Disposition: ROUTINE DISCHARGE Discharge Condition: GOOD Reason for Admission: neutropenic fever Consultations: Oncology - Problems (1) HTN (hypertension) Status: Acute Qualifiers: Hypertension type: essential hypertension Qualified Code(s): I10 - Essential (primary) hypertension (2) Neutropenic fever Status: Acute (3) Anemia Status: Acute Qualifiers: Anemia type: iron deficiency Iron deficiency anemia type: chronic blood loss Qualified Code(s): D50.0 - Iron deficiency anemia secondary to blood loss (chronic) (4) Gastric cancer Status: Chronic Qualifiers: Malignant neoplasm of stomach location: body of stomach Qualified Code(s): C16.2 - Malignant neoplasm of body of stomach (5) Urinary retention Status: Acute (6) BPH (benign prostatic hyperplasia) Status: Chronic Qualifiers: Lower urinary tract symptom presence: symptoms present Lower urinary tract symptom detail: urinary retention Qualified Code(s): N40.1 - Benign prostatic hyperplasia with lower urinary tract symptoms; R33.8 - Other retention of urine Brief History of Present Illness: Mr Ball is a 72 years old male with history of HTN, stomach cancer diagnosed on 2015, s/p radiation therapy, currently on chemotherapy treatment under Dr Leon, last round about 5 days ago. He came to ED because he was unable to urinate since this afternoon around 1500. He had lower abdominal pain, which relieves after had place a ziegler catheter. Initially was drained 600 ml. He was also complaining of weakness and chills but no fever. All his symptoms started yesterday afternoon. He denied nausea, vomiting, diarrhea, SOB or chest pain. Lab work remarkable for neutropenia WBC 0.6. CXR no acute infiltrate, UA mostly unremarkable. Hospital Course: Patient admitted for: Neutropenic fever likely related to UTI He was started on IV antibiotics and IV fluids. His cultures remained negative throughout the stay. For his neutropenia, he was given Neupogen x4 doses. His ANC improved to greater than 1000 at the time of discharge. His cultures again remained negative. His fever did improve. T-max of 100 prior to discharge. Cleared by oncology, Dr. Domingo, for discharge Urinary retention now with Ziegler catheter History of BPH Patient in the history of BPH, admitted with urinary retention. He has had a Ziegler placed. The Ziegler was removed prior to discharge, patient was voiding freely without any abnormalities. He was started on his home medications and discharged on the without any changes. He was recommended to follow up with his urologist. History of stomach cancer with recent chemotherapy Patient with history of stomach cancer w/ surgery in the past. Patient with recent chemotherapy. Discussed with Dr. Domingo. He will follow up with Oncology in 1 week. He otherwise remained stable throughout the stay. Vital Signs/Physical Exam: Temp Pulse Resp BP Pulse Ox 98.3 F 65 18 150/73 H 96 11/25/18 16:00 11/25/18 16:00 11/25/18 16:00 11/25/18 16:00 11/25/18 16:00 General: Alert, In no apparent distress, Oriented x3 HEENT: Atraumatic, PERRLA, EOMI Neck: Supple, JVD not distended Respiratory: Clear to auscultation bilaterally, Normal air movement Cardiovascular: Regular rate/rhythm, Normal S1 S2 Gastrointestinal: Normal bowel sounds, No tenderness Musculoskeletal: No tenderness Integumentary: No rashes Neurological: Normal speech, Normal tone, Normal affect Lymphatics: No axilla or inguinal lymphadenopathy Laboratory Data at Discharge: WBC 4.2 K/uL (4.3-10.9) L D 11/25/18 05:48 Hgb 11.0 g/dL (13.6-17.9) L 11/25/18 05:48 Hct 32.2 % (39.6-49.0) L 11/25/18 05:48 Plt Count 129 K/uL (152-406) L 11/25/18 05:48 Sodium 142 mmol/L (136-145) 11/25/18 05:48 Potassium 3.7 mmol/L (3.5-5.1) 11/25/18 12:44 BUN 6 mg/dL (7-18) L 11/25/18 05:48 Creatinine 0.36 mg/dL (0.55-1.3) L 11/25/18 05:48 Glucose 81 mg/dL (74-106) 11/25/18 05:48 Magnesium 1.8 mg/dL (1.8-2.4) 11/25/18 05:48 Total Bilirubin 0.9 mg/dL (0.2-1.0) 11/22/18 00:00 AST 44 U/L (15-37) H 11/22/18 00:00 ALT 42 U/L (12-78) 11/22/18 00:00 Alkaline Phosphatase 205 U/L (45-117) H 11/22/18 00:00 Home Medications: Tamsulosin HCl [Flomax] 0.4 mg PO DAILY 09/08/16 Sucralfate [Carafate*] 1 gm PO QID #1200 ml 09/15/16 Amlodipine [Norvasc*] 2.5 mg PO DAILY 06/15/18 Docusate Sodium [Stool Softener] 1 tab PO DAILY AT SUPPER 06/15/18 Finasteride 5 mg PO DAILY 06/15/18 Loratadine 10 mg PO DAILY 06/15/18 Omeprazole [Prilosec] 40 mg PO DAILY 06/15/18 Fluticasone Propionate [Flonase Allergy Relief] 1 spray IH DAILY 11/22/18 Magnesium Oxide [Magnesium] 250 mg PO DAILY 11/22/18 Niacin 500 mg PO DAILY AT SUPPER 11/22/18 Potassium Chloride [Klor-Con M20] 20 meq PO DAILY 11/22/18 Patient Discharge Instructions: Please follow up with your PCP in 2-3 days. Please follow up with Dr. leon in 1 week. Return to the Emergency room with worsening symptoms. Diet: AHA Activity: Ad viktor Followup: Kell Allen MD [ACTIVE - CAN ADMIT] - 1 Week (Call to schedule an appointment) Katrin Schafer MD [Primary Care Provider] - 2-3 Days (Call to schedule an appointment) Time spent managing pt's care (in minutes): 55
== END 2018-11-25 17:33 | disposition home or self-care (01) | DRG 809 ==
LOC: ER 22:58 → ERHOLD 11-22 02:58 → 4TH 11-22 03:58
PROVIDERS: ADMIT Internal Medicine; ATTEND Internal Medicine
DX: D70.3 Neutropenia due to infection (principal); N39.0 Urinary tract infection, site not specified; C16.9 Malignant neoplasm of stomach, unspecified; R50.81 Fever presenting with conditions classified elsewhere; N40.1 Benign prostatic hyperplasia with lower urinary tract symptoms; R33.8 Other retention of urine; I10 Essential (primary) hypertension; E78.5 Hyperlipidemia, unspecified; D69.6 Thrombocytopenia, unspecified
CPT/HCPCS: 36415; 71045; 80048; 80053; 81003; 81015; 83605; 83735; 84132; 84145; 85025; 87040; 87086; 87088; 87804; 96365; 96367; 99285; J0692; J1446; J1650; J2543; J3475; J7030

== ENCOUNTER 2019-01-09 13:20 | Emergency (ER) | payer OTHER ==
--- OUTSIDE RECORDS SUMMARY | 2019-01-09 13:22 | XMS REPORT | Clinical Summary ---
:1945 Author Organization [facility] Address [address] [place] [address] Care Team Providers Name Role Phone Katrin [...] 05/21/2018 Lab Lab Kell Mace MD after 01/08/2018 Immunizations Name Dates Previously Given Next Due [...] AGE 65 AND OVER 12/03/2012 INFLUENZA VACCINE 04/01/2019 09/21/2016 Procedures Procedure Name Priority Date/Time Associated Diagnosis Comments TRANSFUSE RED BLOOD Routine 05/06/2018 5:29 PM CDT CELLS after 01/08/2018 Results Transfuse RBC (05/06/2018 5:29 PM CDT)after 01/08/2018 Insurance Payer Benefit Plan / Group Subscriber ID Type Phone Address KENA ESCUDERO [facility] xxxxxxxxx HMO Advance Directives Patient has advance care planning documents on file. For more information, please contact:Hemanth [id number] [place] [address]
[2019-01-09] MEDS ORDERED: NA CHLORIDE 0.9% 1,000 ML ONE (14:09)
[2019-01-09 14:13] LABS: Protime INR 1.02
[2019-01-09 14:17] LABS: Absolute Lymphocytes (CBC) 0.7 K/uL (0.7-4.9); Absolute Monocytes 0.1 K/uL (0.1-1.3); Absolute Neutrophil 4.2 K/uL (1.8-8.0); Basophils % 0.4 % (0-1.3); Eosinophils % 0.6 % (0-4.4); Hematocrit 38.3 % (39.6-49.0); Lymphocytes % 14.8 % (15.3-44.8); MPV 9.1 fL (7.6-11.3); Monocytes % 1.7 % (3.3-12.3); RBC Red Blood Cell Count 3.99 M/uL (4.33-5.43)
[2019-01-09 14:24] LABS: ALT/SGPT 36 U/L (12-78); AST/SGOT 31 U/L (15-37); Albumin 3.2 g/dL (3.4-5.0); Alkaline Phosphatase 171 U/L (45-117); BUN Blood Urea Nitrogen 19 mg/dL (7-18); Bicarbonate 28 mmol/L (21-32); Bilirubin Direct 0.1 mg/dL (0-0.2); Bilirubin Total 0.5 mg/dL (0.2-1.0); Glucose Level 88 mg/dL (74-106); Lipase 59 U/L (73-393); Potassium 4.7 mmol/L (3.5-5.1); Protein, Total 6.1 g/dL (6.4-8.2); Sodium Level 140 mmol/L (136-145)
--- NOTE | 2019-01-09 14:51 | ER ---
Nurse's Notes [facility] Name: Zachariah Ball Age: 73 yrs Sex: Male : 1945 Arrival Date: 01/09/2019 Time: 13:23 Bed 20 Private MD: Katrin Schafer Diagnosis: Diarrhea, unspecified Presentation: 01/09 13:36 Presenting complaint: Patient states: black diarrhea since yesterday, hx of stomach iw cancer, on IV chemo, last chemo Friday, pt denies pain, denies n/v, c/o heartburn, had 2 episodes of diarrhea this morning. Transition of care: patient was not received from another setting of care. Onset of symptoms was January 09, 2019. Risk Assessment: Do you want to hurt yourself or someone else? Patient reports no desire to harm self or others. Initial Sepsis Screen: Does the patient meet any 2 criteria? No. Patient's initial sepsis screen is negative. Does the patient have a suspected source of infection? No. Patient's initial sepsis screen is negative. Care prior to arrival: None. 13:36 Method Of Arrival: Ambulatory iw 13:36 Acuity: MONSE 3 iw Historical: - Allergies: 13:45 No Known Allergies; iw - Home Meds: 13:45 loratadine 10 mg oral TbDL 1 tab once daily [Active]; sucralfate 1 gram Oral tab 1 tab iw 4 times per day [Active]; amlodipine 2.5 mg tab 1 tab once daily [Active]; fluticasone 50 mcg/actuation nasal spsn 1 spray once daily [Active]; omeprazole 40 mg Oral cpDR 1 cap once daily [Active]; magnesium oxide 250 mg Oral tab daily [Active]; tamsulosin 0.4 mg oral cp24 1 cap once daily [Active]; finasteride 5 mg oral tab 1 tab once daily [Active]; potassium chloride 20 mEq Oral TbTQ 1 tab once daily [Active]; loratadine 10 mg oral tab 1 tab once daily [Active]; - PMHx: 13:45 ADD/ADHD; Anemia; Chemo and Radiation Tx (Started August 2016/Diagnosed with Stomach iw Cancer May 2016); Hypertension; neuropathy; stomach cancer; - PSHx: 13:45 stomach; iw - Ebola Screening: : Patient negative for fever greater than or equal to 101.5 degrees Fahrenheit, and additional compatible Ebola Virus Disease symptoms Patient denies exposure to infectious person Patient denies travel to an Ebola-affected area in the 21 days before illness onset No symptoms or risks identified at this time. Screenin:50 Abuse screen: Denies threats or abuse. Nutritional screening: No deficits noted. em Tuberculosis screening: No symptoms or risk factors identified. Fall Risk None identified. Assessment: 13:50 General: Appears in no apparent distress. comfortable, Behavior is calm, cooperative, em Denies fever. Pain: Denies pain. Neuro: Level of Consciousness is awake, alert, obeys commands, Oriented to person, place, time, situation. Cardiovascular: Capillary refill < 3 seconds Patient's skin is warm and dry. Respiratory: Airway is patent Respiratory effort is even, unlabored, Respiratory pattern is regular, symmetrical. GI: Abdomen is flat, Reports diarrhea, dark stools Patient currently denies diarrhea, nausea, vomiting. Derm: Skin is intact, is healthy with good turgor, Skin is pink, warm \T\ dry. Musculoskeletal: Capillary refill < 3 seconds, Range of motion: intact in all extremities. 14:00 Reassessment: I agree with the above assessment, JULIO Fernandez. tw2 15:00 Reassessment: Patient appears in no apparent distress at this time. Patient and/or em family updated on plan of care and expected duration. Pain level reassessed. Patient is alert, oriented x 3, equal unlabored respirations, skin warm/dry/pink. pending completion of NS bolus before discharge. Vital Signs: 13:39 BP 145 / 77; Pulse 70; Resp 16; Temp 97.0(TE); Pulse Ox 97% on R/A; Pain 0/10; iw 14:30 BP 163 / 64; Pulse 54; Resp 18; Pulse Ox 99% on R/A; Pain 0/10; em 15:30 BP 158 / 57; Pulse 55; Resp 18; Pulse Ox 99% on R/A; em ED Course: 13:23 Patient arrived in ED. mr 13:23 Katrin Schafer MD is Private Physician. mr 13:27 Randy Bello NP is PHCP. pm1 13:27 Jin Gooden MD is Attending Physician. pm1 13:39 Triage completed. iw 13:39 Arm band placed on. iw 13:48 Rui Clinton LVN is Primary Nurse. em 13:48 Radiology exam delayed due to lab results not completed at this time. mw3 13:50 Patient has correct armband on for positive identification. Placed in gown. Bed in low em position. Call light in reach. Adult w/ patient. Pulse ox on. NIBP on. 14:00 Initial lab(s) drawn, by me, sent to lab. Inserted saline lock: 20 gauge in right kj1 antecubital area, using aseptic technique. 15:03 No provider procedures requiring assistance completed. em 15:48 IV discontinued, intact, bleeding controlled, No redness/swelling at site. Pressure em dressing applied. Administered Medications: 14:00 Drug: NS 0.9% 500 ml Route: IV; Rate: bolus; Site: right antecubital; em 14:39 Follow up: IV Status: Completed infusion; IV Intake: 500ml em 14:40 Drug: NS 0.9% 1000 ml Route: IV; Rate: 100 ml/hr; Site: right antecubital; em 15:49 Follow up: IV Status: Completed infusion; IV Intake: 500ml em Intake: 14:39 IV: 500ml; Total: 500ml. em 15:49 IV: 500ml; Total: 1000ml. em Outcome: 14:50 Discharge ordered by . pm1 15:47 Discharged to home ambulatory, with family. em 15:47 Condition: good 15:47 Discharge instructions given to patient, family, Instructed on discharge instructions, follow up and referral plans. Demonstrated understanding of instructions, follow-up care. 15:50 Patient left the ED. em Signatures: Nyasia Bonner mr ClintonRui LVN CHAINSTITCH TUNNEL ELASTIC OPERATOR em Jennifer Huddleston, JULIO KIM iw Randy Bello NP COLOR CONTROL OPERATOR pm1 Rebecca Johnson RN RN tw2 Natali Sultana mw3 Catherine Liriano kj1
--- NOTE | 2019-01-09 14:51 | EDPHYS ---
Physician Documentation [facility] Name: Zachariah Ball Age: 73 yrs Sex: Male : 1945 Arrival Date: 01/09/2019 Time: 13:23 Bed 20 Private MD: Katrin Schafer ED Physician Jin Gooden HPI: 01/09 14:00 This 73 yrs old Male presents to ER via Ambulatory with complaints of Diarrhea.pm1 14:00 The patient presents to the emergency department with diarrhea. Onset: The pm1 symptoms/episode began/occurred yesterday. Possible causes: bad food exposure, [employer]. The symptoms are aggravated by nothing. The symptoms are alleviated by nothing. Associated signs and symptoms: Pertinent negatives: abdominal pain, dysuria, fever, nausea, vomiting. Severity of symptoms: in the emergency department the symptoms have improved markedly, Pain is currently a 0 / 10. Patient with history of stomach cancer with gastrectomy. Patient takes chemo every Friday. Patient with complaint of caramel colored diarrhea that started yesterday. Had about ten episodes of diarrhea last night. Today he has had two. Patient took Pepto Bismol last night. Historical: - Allergies: 13:45 No Known Allergies; iw - Home Meds: 13:45 loratadine 10 mg oral TbDL 1 tab once daily [Active]; sucralfate 1 gram Oral tab 1 tab iw 4 times per day [Active]; amlodipine 2.5 mg tab 1 tab once daily [Active]; fluticasone 50 mcg/actuation nasal spsn 1 spray once daily [Active]; omeprazole 40 mg Oral cpDR 1 cap once daily [Active]; magnesium oxide 250 mg Oral tab daily [Active]; tamsulosin 0.4 mg oral cp24 1 cap once daily [Active]; finasteride 5 mg oral tab 1 tab once daily [Active]; potassium chloride 20 mEq Oral TbTQ 1 tab once daily [Active]; loratadine 10 mg oral tab 1 tab once daily [Active]; - PMHx: 13:45 ADD/ADHD; Anemia; Chemo and Radiation Tx (Started August 2016/Diagnosed with Stomach iw Cancer May 2016); Hypertension; neuropathy; stomach cancer; - PSHx: 13:45 stomach; iw - Ebola Screening: : Patient negative for fever greater than or equal to 101.5 degrees Fahrenheit, and additional compatible Ebola Virus Disease symptoms Patient denies exposure to infectious person Patient denies travel to an Ebola-affected area in the 21 days before illness onset No symptoms or risks identified at this time. ROS: 14:00 Constitutional: Negative for fever, chills, and weight loss, Eyes: Negative for injury, pm1 pain, redness, and discharge, ENT: Negative for injury, pain, and discharge, Neck: Negative for injury, pain, and swelling, Cardiovascular: Negative for chest pain, palpitations, and edema, Respiratory: Negative for shortness of breath, cough, wheezing, and pleuritic chest pain. 14:00 Back: Negative for injury and pain, : Negative for injury, bleeding, discharge, and swelling, MS/Extremity: Negative for injury and deformity, Skin: Negative for injury, rash, and discoloration. 14:00 Neuro: Negative for headache, weakness, numbness, tingling, and seizure. 14:00 Abdomen/GI: Positive for diarrhea, Negative for abdominal pain, nausea and vomiting. Exam: 14:00 Constitutional: This is a well developed, well nourished patient who is awake, alert, pm1 and in no acute distress. Head/Face: Normocephalic, atraumatic. Eyes: Pupils equal round and reactive to light, extra-ocular motions intact. Lids and lashes normal. Conjunctiva and sclera are non-icteric and not injected. Cornea within normal limits. Periorbital areas with no swelling, redness, or edema. ENT: Nares patent. No nasal discharge, no septal abnormalities noted. Tympanic membranes are normal and external auditory canals are clear. Oropharynx with no redness, swelling, or masses, exudates, or evidence of obstruction, uvula midline. Mucous membranes moist. Neck: Trachea midline, no thyromegaly or masses palpated, and no cervical lymphadenopathy. Supple, full range of motion without nuchal rigidity, or vertebral point tenderness. No Meningismus. Chest/axilla: Normal chest wall appearance and motion. Nontender with no deformity. No lesions are appreciated. Cardiovascular: Regular rate and rhythm with a normal S1 and S2. No gallops, murmurs, or rubs. Normal PMI, no JVD. No pulse deficits. Respiratory: Lungs have equal breath sounds bilaterally, clear to auscultation and percussion. No rales, rhonchi or wheezes noted. No increased work of breathing, no retractions or nasal flaring. Abdomen/GI: Soft, non-tender, with normal bowel sounds. No distension or tympany. No guarding or rebound. No evidence of tenderness throughout. Back: No spinal tenderness. No costovertebral tenderness. Full range of motion. Skin: Warm, dry with normal turgor. Normal color with no rashes, no lesions, and no evidence of cellulitis. MS/ Extremity: Pulses equal, no cyanosis. Neurovascular intact. Full, normal range of motion. 14:00 Neuro: Orientation: is normal, Motor: is normal, moves all fours, Gait: is steady, at a normal pace, without difficulty. 14:04 Abdomen/GI: Rectal exam: rectal tone normal, Stool: guaiac negative, dark brown. pm1 Vital Signs: 13:39 BP 145 / 77; Pulse 70; Resp 16; Temp 97.0(TE); Pulse Ox 97% on R/A; Pain 0/10; iw 14:30 BP 163 / 64; Pulse 54; Resp 18; Pulse Ox 99% on R/A; Pain 0/10; em 15:30 BP 158 / 57; Pulse 55; Resp 18; Pulse Ox 99% on R/A; em MDM: 13:27 Patient medically screened. pm1 14:38 Data reviewed: vital signs. Data interpreted: Pulse oximetry: on room air is 97 %. pm1 Interpretation: normal. 14:49 Counseling: I had a detailed discussion with the patient and/or guardian regarding: the pm1 historical points, exam findings, and any diagnostic results supporting the discharge/admit diagnosis, lab results, the need for outpatient follow up, to return to the emergency department if symptoms worsen or persist or if there are any questions or concerns that arise at home. 01/09 13:37 Order name: PT-INR; Complete Time: 14:27 pm1 01/09 13:37 Order name: Type And Screen; Complete Time: 14:56 pm1 01/09 13:37 Order name: Basic Metabolic Panel; Complete Time: 14:25 pm1 01/09 13:37 Order name: CBC with Diff; Complete Time: 14:25 pm1 01/09 13:37 Order name: Creatinine for Radiology; Complete Time: 14:25 pm1 01/09 13:37 Order name: Hepatic Function; Complete Time: 14:25 pm1 01/09 13:37 Order name: Lipase; Complete Time: 14: pm1 01/09 13:37 Order name: IV Saline Lock; Complete Time: 14: pm1 01/09 13:37 Order name: Labs collected and sent; Complete Time: 14: pm1 Administered Medications: 14:00 Drug: NS 0.9% 500 ml Route: IV; Rate: bolus; Site: right antecubital; em 14:39 Follow up: IV Status: Completed infusion; IV Intake: 500ml em 14:40 Drug: NS 0.9% 1000 ml Route: IV; Rate: 100 ml/hr; Site: right antecubital; em 15:49 Follow up: IV Status: Completed infusion; IV Intake: 500ml em Disposition: 16:58 Co-signature as Attending Physician, Jin Gooden MD. rn Disposition: 01/09/19 14:50 Discharged to Home. Impression: Diarrhea, unspecified. - Condition is Stable. - Discharge Instructions: Food Choices to Help Relieve Diarrhea, Adult, Diarrhea, Adult. - Medication Reconciliation Form, Thank You Letter, Antibiotic Education, Prescription Opioid Use form. - Follow up: Emergency Department; When: As needed; Reason: Worsening of condition. Follow up: Private Physician; When: 2 - 3 days; Reason: Recheck today's complaints, Continuance of care, Re-evaluation by your physician. - Problem is new. - Symptoms have improved. Signatures: Dispatcher [employer] [facility] Rui Clinton, CLINICAL NURSING INSTRUCTOR CLINICAL NURSING INSTRUCTOR em Jennifer Huddleston RN RN iw Nieto, Roman, MD MD rn Marinas, Patrick, PURCHASING EXPEDITOR PURCHASING EXPEDITOR pm1 Corrections: (The following items were deleted from the chart) 15:01 13:40 Abdomen Pelvis W Con+CT.RAD.BRZ ordered. [facility] EDNV 15:50 14:50 01/09/2019 14:50 Discharged to Home. Impression: Diarrhea, unspecified. Condition em is Stable. Forms are Medication Reconciliation Form, Thank You Letter, Antibiotic Education, Prescription Opioid Use. Follow up: Emergency Department; When: As needed; Reason: Worsening of condition. Follow up: Private Physician; When: 2 - 3 days; Reason: Recheck today's complaints, Continuance of care, Re-evaluation by your physician. Problem is new. Symptoms have improved. pm1
[2019-01-09 16:00] VITALS: TEMP 97
[2019-01-09 16:01] VITALS: O2SAT 99
[2019-01-09 16:02] VITALS: BP 158/57
== END 2019-01-09 15:50 | disposition home or self-care (01) ==
LOC: ER 13:20
DX: R19.7 Diarrhea, unspecified (principal); I10 Essential (primary) hypertension; F90.9 Attention-deficit hyperactivity disorder, unspecified type; Z85.028 Personal history of other malignant neoplasm of stomach
CPT/HCPCS: 96361; 85025; 80048; 36415; 86900; 86850; 85610; 86901; 80076; 83690; 96360; 99284; J7030

== ENCOUNTER 2019-02-12 14:23 | Observation (INO) | payer OTHER ==
[2019-02-12] MEDS ORDERED: LEVALBUTEROL 1.25 MG/3 ML NEB ONE (15:10)
[2019-02-12] MEDS ORDERED: PANTOPRAZOLE 40 MG INJ ONE (15:10)
[2019-02-12 15:21] LABS: Absolute Lymphocytes (CBC) 0.6 K/uL (0.7-4.9); Basophils % 0.1 % (0-1.3); Hematocrit 34.7 % (39.6-49.0); MPV 9.2 fL (7.6-11.3); Monocytes % 0.7 % (3.3-12.3); RBC Red Blood Cell Count 3.62 M/uL (4.33-5.43)
[2019-02-12 15:30] LABS: BUN Blood Urea Nitrogen 18 mg/dL (7-18); Bicarbonate 27 mmol/L (21-32); Glucose Level 115 mg/dL (74-106); Potassium 4.4 mmol/L (3.5-5.1); Sodium Level 139 mmol/L (136-145)
--- OUTSIDE RECORDS SUMMARY | 2019-02-12 16:02 | XMS REPORT | Clinical Summary ---
:1945 Author Organization [facility] Address [address] [place] [address] Care Team Providers Name Role Phone Katrin [...] 05/21/2018 Lab Lab Kell Mace MD after 02/11/2018 Immunizations Name Dates Previously Given Next Due [...] Health Maintenance Due Date Last Done Comments COLONOSCOPY SCREENING 12/03/1997 SHINGLES VACCINES (#1) 12/03/1997 65+ PNEUMOCOCCAL VACCINE (1 of 2 - PCV13) 12/03/2012 INFLUENZA VACCINE 04/01/2019 09/21/2016 Procedures Procedure Name Priority Date/Time Associated Diagnosis Comments TRANSFUSE RED BLOOD Routine 05/06/2018 5:29 PM CDT CELLS after 02/11/2018 Results Transfuse RBC (05/06/2018 5:29 PM CDT)after 02/11/2018 Advance Directives Patient has advance care planning documents on file. For more information, please contact:[place] [address]
[2019-02-12] MEDS ORDERED: CEFTRIAXONE/SWI 1gm 1 GM/10 ML SYR ONE (16:12)
[2019-02-12 16:13] LABS: Anisocytosis 1+; Blood Morphology Comment NOTED (NOT SEEN); Platelet Estimate DECR; Toxic Granulation 1+
--- NOTE | 2019-02-12 16:28 | RAD REPORT ---
EXAM DESCRIPTION: [place]inguez Single View02/12/2019 3:18 pm CLINICAL HISTORY: Cough COMPARISON: October 2018 FINDINGS: The lungs appear clear of acute infiltrate. The heart is normal size Central venous line in place IMPRESSION: No acute abnormalities displayed
[2019-02-12] MEDS ORDERED: VANCOMYCIN 1.5 GM in NA CHLORIDE 0.9% 500 ML IVPB ONE (17:00)
--- NOTE | 2019-02-12 17:34 | RAD REPORT ---
EXAM DESCRIPTION: CT - Chest Abdomen Pelvis W Cont - 02/12/2019 5:08 pm CLINICAL HISTORY: C18.7, C20 chest and abdominal pain COMPARISON: May [address] chest December [address] abdomen TECHNIQUE: Computed axial tomography of the chest, abdomen and pelvis was obtained. 100 cc Isovue-30 0 was administered intravenously. Oral contrast was given All CT scans are performed using dose optimization technique as appropriate and may include automated exposure control or mA/KV adjustment according to patient size. FINDINGS: Mild tree-in-bud opacities left lower lobe. Right lung is clear for No mediastinal or hilar lymphadenopathy A pleural effusion is not seen. A pericardial effusion is not noted. A thoracic ascending aorta AP diameter 4.3 centimeters. The abdominal aorta has an AP diameter of 2.9 centimeters Mild fatty infiltration liver Liver, spleen, adrenals and kidneys appear unremarkable. Pancreas is atrophic Wall of the gallbladder is thickened. Diffuse edema is present within the subcutaneous tissues. Small amount of ascites Partial gastric resection with gastrojejunostomy. No obstruction There is no evidence of diverticulitis. Normal appendix Spondylosis involves lumbar spine resulting in spinal stenosis. Mild to moderate enlargement prostate IMPRESSION: Mild tree-in-bud opacities left lower lobe may indicate an atypical pneumonia or pneumon itis Gallbladder wall thickening may be secondary to hypoalbuminemia or cholecystitis
--- NOTE | 2019-02-12 17:51 | ER ---
Nurse's Notes [facility] Name: Zachariah Ball Age: 73 yrs Sex: Male : 1945 Arrival Date: 02/12/2019 Time: 14:28 Bed 19 Private MD: Katrin Schafer Diagnosis: Pneumonia, unspecified organism Presentation: 02/12 14:38 Presenting complaint: Patient states: productive cough x 2 week ago. Pt also reports aa5 chest pain and SOB on exertion. Pt also c/o back pain. Reports last chemo was Friday. 14:38 Transition of care: patient was not received from another setting of care. Onset of aa5 symptoms was January 2019. Risk Assessment: Do you want to hurt yourself or someone else? Patient reports no desire to harm self or others. Care prior to arrival: None. 14:38 Acuity: MONSE 3 aa5 14:38 Method Of Arrival: Ambulatory aa5 14:46 Initial Sepsis Screen: Does the patient meet any 2 criteria? No. Patient's initial em sepsis screen is negative. Does the patient have a suspected source of infection? No. Patient's initial sepsis screen is negative. Historical: - Allergies: 14:46 No Known Allergies; em - Home Meds: 14:46 Amitiza 8 mcg Oral cap as needed for constipation [Active]; amlodipine 2.5 mg tab em [Active]; amlodipine 2.5 mg tab 1 tab once daily [Active]; Benicar HCT 40-25 mg Oral tab 1 tab once daily [Active]; capecitabine 500 mg Oral tab take 2 tabs BID on Friday-Friday weekly with radiation therapy [Active]; Carafate 1 gram Oral tab 1 tab 4 times per day [Active]; chlorpheniramine maleate 4 mg Oral tab daily [Active]; Dexilant 60 mg Oral CpDB 1 cap once daily [Active]; diclofenac sodium 75 mg Oral TbEC 1 tab 2 times per day [Active]; finasteride 5 mg Oral tab [Active]; tamsulosin 0.4 mg Oral cp24 1 cap once daily [Active]; omeprazole 40 mg Oral cpDR 1 cap once daily [Active]; fluticasone 50 mcg/actuation nasal spsn 1 spray once daily [Active]; potassium chloride 20 mEq Oral TbTQ 1 tab once daily [Active]; - PMHx: 14:46 ADD/ADHD; Anemia; Chemo and Radiation Tx (Started August 2016/Diagnosed with Stomach em Cancer May 2016); Hypertension; neuropathy; stomach cancer; - Immunization history:: Adult Immunizations up to date. - Social history:: Smoking status: Patient/guardian denies using tobacco. - Ebola Screening: : Patient negative for fever greater than or equal to 101.5 degrees Fahrenheit, and additional compatible Ebola Virus Disease symptoms Patient denies exposure to infectious person Patient denies travel to an Ebola-affected area in the 21 days before illness onset No symptoms or risks identified at this time. Screenin:46 Abuse screen: Denies threats or abuse. Nutritional screening: No deficits noted. em Tuberculosis screening: No symptoms or risk factors identified. Fall Risk None identified. Assessment: 14:46 General: Appears in no apparent distress. comfortable, Behavior is calm, cooperative, em Denies fever. Pain: Complains of pain in back Pain currently is 9 out of 10 on a pain scale. Neuro: Level of Consciousness is awake, alert, obeys commands, Oriented to person, place, time, situation. Cardiovascular: Heart tones S1 S2 present Capillary refill < 3 seconds Patient's skin is warm and dry. Respiratory: Reports shortness of breath on exertion cough that is productive, Airway is patent Respiratory effort is even, unlabored, Respiratory pattern is regular, symmetrical, Breath sounds are diminished bilaterally. GI: Abdomen is flat, Patient currently denies nausea, vomiting. Derm: Skin is intact, is healthy with good turgor, Skin is pink, warm \T\ dry. Musculoskeletal: Capillary refill < 3 seconds, Range of motion: intact in all extremities. 15:00 Reassessment: I agree with the assessment made by Rui BARRAZA. sg 15:30 Reassessment: Patient appears in no apparent distress at this time. Patient and/or em family updated on plan of care and expected duration. Pain level reassessed. Patient is alert, oriented x 3, equal unlabored respirations, skin warm/dry/pink. Patient states symptoms have improved. 17:38 Reassessment: Patient appears in no apparent distress at this time. Patient and/or em family updated on plan of care and expected duration. Pain level reassessed. Patient is alert, oriented x 3, equal unlabored respirations, skin warm/dry/pink. Patient states feeling better. 18:42 Reassessment: Patient appears in no apparent distress at this time. Patient and/or em family updated on plan of care and expected duration. Pain level reassessed. Patient is alert, oriented x 3, equal unlabored respirations, skin warm/dry/pink. Patient states feeling better. Patient states symptoms have improved. 19:41 Reassessment: Patient appears in no apparent distress at this time. Patient and/or ed1 family updated on plan of care and expected duration. Pain level reassessed. Patient is alert, oriented x 3, equal unlabored respirations, skin warm/dry/pink. Patient denies pain at this time. Vital Signs: 14:46 BP 139 / 68; Pulse 86; Resp 20; Temp 98.0(O); Pulse Ox 100% on R/A; Pain 9/10; em 16:06 BP 112 / 60; Pulse 96; Resp 18; Temp 97.9(TE); Pulse Ox 98% on R/A; mh5 16:47 Weight 62.14 kg (R); hb 17:37 BP 106 / 74; Pulse 82; Resp 18; Temp 98.7(O); Pulse Ox 99% on R/A; mh5 19:41 BP 120 / 60; Pulse 86; Resp 17; Temp 99.0(O); Pulse Ox 99% on R/A; Pain 0/10; ed1 ED Course: 14:28 Patient arrived in ED. mr 14:28 Katrin Schafer MD is Private Physician. mr 14:38 Arm band placed on Patient placed in an exam room, on a stretcher. aa5 14:39 Roger Bolivar MD is Attending Physician. kdr 14:43 Rui Clinton LVN is Primary Nurse. em 14:46 Patient has correct armband on for positive identification. Bed in low position. Call em light in reach. Adult w/ patient. Pulse ox on. NIBP on. 14:48 Triage completed. aa5 15:05 Initial lab(s) drawn, by me, sent to lab. Inserted saline lock: 20 gauge in right em forearm, using aseptic technique. Blood collected. 15:18 CXR XRAY In Process Unspecified. EDMS 16:47 First set of blood cultures drawn by me. mh5 16:55 Inserted saline lock: 22 gauge in left forearm, using aseptic technique. Blood [facility] collected. 16:56 Procalcitonin Sent. 5 16:56 Lactate Sent. mh5 16:56 Blood Culture Adult (2) Sent. 5 17:10 CT Chest, Abdomen, Pelvis - W/Contrast In Process Unspecified. EDMS 17:50 Bimal Evangelista DO is Hospitalizing Provider. [facility] 19:10 Primary Nurse role handed off by Rui Clinton LVN ed1 19:10 Makenzie Viera, JULIO is Primary Nurse. ed1 19:41 No provider procedures requiring assistance completed. Patient admitted, IV remains in ed1 place. intact, No redness/swelling at site. Administered Medications: 15:05 Drug: Xopenex (3) 1.25 mg Route: Inhalation; em 15:49 Follow up: Response: No adverse reaction; Marked relief of symptoms em 15:10 Drug: ProTONIX 40 mg Route: IVP; Site: right forearm; hb 15:49 Follow up: Response: No adverse reaction em 16:08 Drug: Rocephin - (cefTRIAXone) 1 grams Route: IVPB; Infused Over: 30 mins; Site: right hb forearm; 17:15 Drug: vancoMYCIN 1 grams Route: IVPB; Infused Over: 2 hrs; Site: right forearm; em 19:54 Follow up: Response: No adverse reaction; IV Status: Completed infusion; IV Intake: ed1 500ml Intake: 19:54 IV: 500ml; Total: 500ml. ed1 Outcome: 17:51 Decision to Hospitalize by Provider. kdr 20:29 Admitted to Med/surg accompanied by tech, family with patient, via wheelchair, room ed1 232, with chart. 20:29 Condition: stable 20:29 Discharge instructions given to patient, family, Instructed on the need for admit, Demonstrated understanding of instructions. 20:30 Patient left the ED. ed1 Signatures: Dispatcher [employer] EDRick Jackson, RN Roger Cabrera MD MD kdr Rivera, Mary mr Rui Clinton LVN SOFTWARE ENGINEER em Keila March RN RN aa5 Makenzie Viera RN RN ed1 Norma Nicole RN RN Idania Mckeon [facility]
--- NOTE | 2019-02-12 17:51 | EDPHYS ---
Physician Documentation [facility] Name: Zachariah Ball Age: 73 yrs Sex: Male : 1945 Arrival Date: 02/12/2019 Time: 14:28 Bed 19 Private MD: Katrin Schafer ED Physician Roger Bolivar HPI: 02/12 14:54 This 73 yrs old Male presents to ER via Ambulatory with complaints of SOB for kdr two weeks with green phlegm. 14:54 The patient has shortness of breath with light activity. Onset: The symptoms/episode kdr began/occurred gradually, 2 week(s) ago. Duration: The symptoms are intermittent, With exertion or even driving a cart at [facility]. The patient's shortness of breath is aggravated by exertion, light activity, walking, is alleviated by rest. Associated signs and symptoms: Pertinent positives: The patient has chronic abdomen, back and chest pain associated with his gastric cancer and poorly controlled acid reflux. His primary c/o today is worsening SOB with occasional cough and green phlegm. Severity of symptoms: At their worst the symptoms were mild in the emergency department the symptoms are unchanged. The patient has experienced similar episodes in the past, chronically. The patient has been recently seen by a physician: the patient's primary care provider, Was unable to get in to see her MD today. Historical: - Allergies: 14:46 No Known Allergies; em - Home Meds: 14:46 Amitiza 8 mcg Oral cap as needed for constipation [Active]; amlodipine 2.5 mg tab em [Active]; amlodipine 2.5 mg tab 1 tab once daily [Active]; Benicar HCT 40-25 mg Oral tab 1 tab once daily [Active]; capecitabine 500 mg Oral tab take 2 tabs BID on Friday-Friday weekly with radiation therapy [Active]; Carafate 1 gram Oral tab 1 tab 4 times per day [Active]; chlorpheniramine maleate 4 mg Oral tab daily [Active]; Dexilant 60 mg Oral CpDB 1 cap once daily [Active]; diclofenac sodium 75 mg Oral TbEC 1 tab 2 times per day [Active]; finasteride 5 mg Oral tab [Active]; tamsulosin 0.4 mg Oral cp24 1 cap once daily [Active]; omeprazole 40 mg Oral cpDR 1 cap once daily [Active]; fluticasone 50 mcg/actuation nasal spsn 1 spray once daily [Active]; potassium chloride 20 mEq Oral TbTQ 1 tab once daily [Active]; - PMHx: 14:46 ADD/ADHD; Anemia; Chemo and Radiation Tx (Started August 2016/Diagnosed with Stomach em Cancer May 2016); Hypertension; neuropathy; stomach cancer; - Immunization history:: Adult Immunizations up to date. - Social history:: Smoking status: Patient/guardian denies using tobacco. - Ebola Screening: : Patient negative for fever greater than or equal to 101.5 degrees Fahrenheit, and additional compatible Ebola Virus Disease symptoms Patient denies exposure to infectious person Patient denies travel to an Ebola-affected area in the 21 days before illness onset No symptoms or risks identified at this time. ROS: 14:54 Constitutional: Negative for fever, chills, and weight loss, Eyes: Negative for injury, kdr pain, redness, and discharge, Neck: Negative for injury, pain, and swelling, : Negative for injury, bleeding, discharge, and swelling, MS/Extremity: Negative for injury and deformity, Skin: Negative for injury, rash, and discoloration, Neuro: Negative for headache, weakness, numbness, tingling, and seizure activity. Psych: Negative for depression, anxiety, suicide ideation, homicidal ideation, and hallucinations, Allergy/Immunology: Negative for hives, rash, and allergies, Endocrine: Negative for neck swelling, polydipsia, polyuria, polyphagia, and marked weight changes, Hematologic/Lymphatic: Negative for swollen nodes, abnormal bleeding, and unusual bruising. 14:54 Cardiovascular: Positive for chest pain, with cough, with movement, Negative for edema, orthopnea, palpitations, paroxysmal nocturnal dyspnea. 14:54 Respiratory: Positive for cough, with green sputum, dyspnea on exertion, shortness of breath, Negative for hemoptysis, orthopnea, pleurisy, wheezing. 14:54 Abdomen/GI: Positive for abdominal pain, nausea, Negative for nausea, vomiting, and diarrhea, constipation, abdominal cramps, abdominal distension, anorexia, dysphagia, hematemesis, black/tarry stool, rectal pain, rectal bleeding, bowel incontinence. Exam: 14:54 Constitutional: This is a well developed, well nourished patient who is awake, alert, kdr and in no acute distress. Head/Face: Normocephalic, atraumatic. Eyes: Pupils equal round and reactive to light, extra-ocular motions intact. Lids and lashes normal. Conjunctiva and sclera are non-icteric and not injected. Cornea within normal limits. Periorbital areas with no swelling, redness, or edema. Neck: Trachea midline, no thyromegaly or masses palpated, and no cervical lymphadenopathy. Supple, full range of motion without nuchal rigidity, or vertebral point tenderness. No Meningismus. Chest/axilla: Normal chest wall appearance and motion. Nontender with no deformity. No lesions are appreciated. Cardiovascular: Regular rate and rhythm with a normal S1 and S2. No gallops, murmurs, or rubs. Normal PMI, no JVD. No pulse deficits. Respiratory: Lungs have equal breath sounds bilaterally, clear to auscultation and percussion. No rales, rhonchi or wheezes noted. No increased work of breathing, no retractions or nasal flaring. Back: No spinal tenderness. No costovertebral tenderness. Full range of motion. Skin: Warm, dry with normal turgor. Normal color with no rashes, no lesions, and no evidence of cellulitis. MS/ Extremity: Pulses equal, no cyanosis. Neurovascular intact. Full, normal range of motion. Psych: Awake, alert, with orientation to person, place and time. Behavior, mood, and affect are within normal limits. 14:54 Abdomen/GI: Inspection: abdomen appears normal, Bowel sounds: active, Palpation: Firm but essentially non-tender. Vital Signs: 14:46 BP 139 / 68; Pulse 86; Resp 20; Temp 98.0(O); Pulse Ox 100% on R/A; Pain 9/10; em 16:06 BP 112 / 60; Pulse 96; Resp 18; Temp 97.9(TE); Pulse Ox 98% on R/A; mh5 16:47 Weight 62.14 kg (R); hb 17:37 BP 106 / 74; Pulse 82; Resp 18; Temp 98.7(O); Pulse Ox 99% on R/A; mh5 19:41 BP 120 / 60; Pulse 86; Resp 17; Temp 99.0(O); Pulse Ox 99% on R/A; Pain 0/10; ed1 MDM: 17:51 Patient medically screened. kdr 17:51 Data reviewed: vital signs, nurses notes, lab test result(s), radiologic studies. [facility] 02/12 14:54 Order name: CBC with Diff; Complete Time: 17:21 [facility] 02/12 14:54 Order name: Chem 7; Complete Time: 15:46 [facility] 02/12 15:37 Order name: Manual Differential; Complete Time: 17:21 [facility] 02/12 16:15 Order name: Blood Culture Adult (2) hb 02/12 16:15 Order name: Lactate; Complete Time: 17:27 02/12 16:15 Order name: Procalcitonin; Complete Time: 17:47 02/12 14:54 Order name: CXR XRAY; Complete Time: 17:21 [facility] 02/12 16:26 Order name: CT Chest, Abdomen, Pelvis - W/Contrast; Complete Time: 17:47 [facility] Administered Medications: 15:05 Drug: Xopenex (3) 1.25 mg Route: Inhalation; em 15:49 Follow up: Response: No adverse reaction; Marked relief of symptoms em 15:10 Drug: ProTONIX 40 mg Route: IVP; Site: right forearm; hb 15:49 Follow up: Response: No adverse reaction em 16:08 Drug: Rocephin - (cefTRIAXone) 1 grams Route: IVPB; Infused Over: 30 mins; Site: right hb forearm; 17:15 Drug: vancoMYCIN 1 grams Route: IVPB; Infused Over: 2 hrs; Site: right forearm; em 19:54 Follow up: Response: No adverse reaction; IV Status: Completed infusion; IV Intake: ed1 500ml Disposition: 02/12/19 17:51 Hospitalization ordered by Bimal Evangelista for Observation. Preliminary diagnosis is Pneumonia, unspecified organism. - Bed requested for Telemetry/MedSurg (observation). - Status is Observation. ed1 - Condition is Fair. - Problem is new. - Symptoms are unchanged. UTI on Admission? No Signatures: Dispatcher [employer] EDMS Roger Bolivar MD MD [facility] Rui Clinton, [employer] WORK[employer] SUPERVISOR SUR[employer] WORKERS SUPERVISOR em Makenzie Viera RN RN ed1 Blessing uGzman RN JULIO Norma Nicole RN RN Corrections: (The following items were deleted from the chart) 18:11 17:51 Hospitalization Ordered by Bimal Evagnelista DO for Inpatient Admission. Preliminary kdr diagnosis is Pneumonia, unspecified organism. Bed requested for Telemetry/MedSurg (Inpatient). Status is Inpatient Admission. Condition is Fair. Problem is new. Symptoms are unchanged. UTI on Admission? No. kdr 19:06 18:11 02/12/2019 17:51 Hospitalization Ordered by [facility] DO for Observation. cg Preliminary diagnosis is Pneumonia, unspecified organism. Bed requested for Telemetry/MedSurg (observation). Status is Observation. Condition is Fair. Problem is new. Symptoms are unchanged. UTI on Admission? No. kdr 20:30 19:06 02/12/2019 17:51 Hospitalization Ordered by [facility] DO for Observation. ed1 Preliminary diagnosis is Pneumonia, unspecified organism. Bed requested for Telemetry/MedSurg (observation). Status is Observation. Condition is Fair. Problem is new. Symptoms are unchanged. UTI on Admission? No. cg
--- NOTE | 2019-02-12 18:37 | P.HP ---
Certification for Inpatient Patient admitted to: Observation With expected LOS: <2 Midnights Patient will require the following post-hospital care: None Practitioner: I am a practitioner with admitting privileges, knowledge of patient current condition, hospital course, and medical plan of care. Services: Services provided to patient in accordance with Admission requirements found in Title 42 Section 412.3 of the Code of Federal Regulations Patient History Date of Service: 02/12/19 Primary Care Provider: Dr. So; Oncology-Dr. Leon Reason for admission: Cough, shortness of breath History of Present Illness: 73-year-old male with history of stage IV gastric cancer came to the emergency room with increasing cough, congestion and shortness of breath. Patient reports increasing shortness of breath over the past 2 weeks. He has reported increased phlegm and fatigue. Patient mentions that he did get chemotherapy this week. Shortness of breath has not improved. He has had poor oral intake. No sick contacts noted. Patient came to the ER for further evaluation. In the ER patient evaluated. Oxygen saturations within normal range. White count elevated at 28.3. Lactic acid 2.8, pro calcitonin 0.1. Sodium 139, potassium 4.4, BUN of 18, creatinine 0.51 with a GFR greater than 90. Glucose 118. CT showed left lower lobe pneumonia. Due to his chronic condition and worsening symptoms, patient was admitted for observation. When I saw the patient ER, he appeared comfortable. He denied any significant chest pain the reported back pain from time to time. Patient denies any alcohol or tobacco use. Patient continues with chemotherapy with oncology. Patient stable at this time. Patient does not appear septic. reports that he has had poor oral intake. Allergies No Known Allergies Allergy (Verified 06/15/18 10:35) Home medications list reviewed: Yes Home Medications: Tamsulosin HCl [Flomax] 0.4 mg PO DAILY 09/08/16 Sucralfate [Carafate*] 1 gm PO QID #1200 ml 09/15/16 Amlodipine [Norvasc*] 2.5 mg PO DAILY 06/15/18 Docusate Sodium [Stool Softener] 1 tab PO DAILY AT SUPPER 06/15/18 Finasteride 5 mg PO DAILY 06/15/18 Loratadine 10 mg PO DAILY 06/15/18 Omeprazole [Prilosec] 40 mg PO DAILY 06/15/18 Fluticasone Propionate [Flonase Allergy Relief] 1 spray IH DAILY 11/22/18 Magnesium Oxide [Magnesium] 250 mg PO DAILY 11/22/18 Niacin 500 mg PO DAILY AT SUPPER 11/22/18 Potassium Chloride [Klor-Con M20] 20 meq PO DAILY 11/22/18 - Past Medical/Surgical History Diabetic: No -: Hypertension -: Hyperlipidemia -: BPH -: Stage IV gastric cancer (GASTRIC ADENOCARCINOMA, METS TO PERITONEUM) -: Neuropathy -: Chronic nasal allergies -: ARTHROSCOPY R KNEE -: STOMACH SX -: PORT-A-CATH Psychosocial/ Personal History: Patient lives at home. He is . - Family History Sister -: Cancer Notes: STOMACH CANCER MOM -: Cancer Notes: STOMACH CANCER DAD -: Cancer Notes: PROSTATE CANCER - Social History Smoking Status: Never smoker Alcohol use: No CD- Drugs: No Caffeine use: Yes Place of Residence: Home Review of Systems General: Fever, Weakness, As per HPI Eyes: Unremarkable ENT: Nose Congestion, As per HPI Respiratory: Cough, Shortness of Breath, SOB with Excertion, As per HPI Cardiovascular: Unremarkable Gastrointestinal: Abdominal Pain (, increase reflux), As per HPI Genitourinary: Unremarkable Musculoskeletal: Unremarkable Integumentary: Unremarkable Neurological: Unremarkable Lymphatics: Unremarkable Physical Examination - Physical Exam General: Alert, In no apparent distress, Oriented x3, Cooperative, Other ( Muscle wasting to the upper and lower extremities including the torso.) HEENT: Atraumatic, Normocephalic, PERRLA, Mucous membr. moist/pink Neck: Supple, No Thyromegaly Respiratory: Crackles/rales (Slight congestion to the left lower base) Cardiovascular: Normal pulses, Regular rate/rhythm Gastrointestinal: Normal bowel sounds, Soft and benign, Non-distended, No tenderness, No masses, No rebound, No guarding Musculoskeletal: No erythema, No tenderness, No warmth, Other (Muscle wasting noted throughout) Integumentary: No erythema, No warmth, No cyanosis Neurological: Normal speech, Normal strength at 5/5 x4 extr, Normal tone, Normal affect - Studies Laboratory Data (last 24 hrs) 02/12/19 15:10: Sodium 139, Potassium 4.4, BUN 18, Creatinine 0.51 L, Glucose 115 H 06/14/19 15:10: WBC 28.3 H*, Hgb 11.2 L, Hct 34.7 L, Plt Count 133 L Assessment and Plan - Plan Impression: Cough, congestion which shortness of breast secondary to left lower lobe pneumonia complicated with leukocytosis with recent chemotherapy Stage IV gastric cancer on chemotherapy BPH GERD Hypertension Malnutrition Plan: Cough, congestion which shortness of breast secondary to left lower lobe pneumonia complicated with leukocytosis with recent chemotherapy: Patient will be admitted for observation. Room-air saturations within normal range. Will start IV fluids. Encourage oral intake. Will start Levaquin for broad- spectrum coverage. Will obtain sputum and blood culture results. Will evaluate for influenza and Streptococcus. Will provide medication for cough and congestion. Will maintain sats above 90%. Leukocytosis elevated likely related to pneumonia and recent chemotherapy. Will monitor this closely. Pro calcitonin negative. Patient does not appear septic at this time. Patient to be reassess within the next 24 hr with repeat chest x-ray. If stable will consider discharge as early as tomorrow. I will turn the service over to Dr. Manrique going to tomorrow. I will go over the plan of care with her. Stage IV gastric cancer on chemotherapy: Patient with recent chemotherapy on Friday. BPH: Will continue with his medication of finasteride and Flomax. GERD: Will provide medication-Protonix. Hypertension: Will continue with Norvasc 2.5 mg daily. Moderate malnutrition: Will provide supplementation. Encourage oral intake. Discharge Plan: Home Plan to discharge in: 24 Hours - Advance Directives Does patient have a Living Will: No Does patient have a Durable POA for Healthcare: No - Code Status/Comfort Care Code Status Assessed: Yes (Patient is full code.) Time Spent Managing Pts Care (In Minutes): 55
[2019-02-12] MEDS ORDERED: ACETAMINOPHEN 500 MG TAB PO PRN (20:49)
[2019-02-12] MEDS ORDERED: ALBUTEROL 2.5 MG/3 ML NEB SOL NEB PRN (20:49)
[2019-02-12] MEDS ORDERED: NA CHLORIDE 0.9% 1,000 ML IV SCH (20:49)
[2019-02-12] MEDS ORDERED: LOPERAMIDE HCL 2 MG CAPSULE PO PRN (20:49)
[2019-02-12] MEDS ORDERED: ONDANSETRON 4 MG/2 ML VIAL IV PRN (20:49)
[2019-02-12] MEDS ORDERED: LORATADINE 10 MG TAB PO PRN (20:49)
[2019-02-12] MEDS ORDERED: Levofloxacin500mg IV 500 MG/100 ML BAG IV SCH (20:49)
[2019-02-12] MEDS ORDERED: TRAMADOL HCL 50 MG TAB PO PRN (20:49)
[2019-02-12] MEDS ORDERED: BENZONATATE 100 MG CAP PO PRN (20:49)
[2019-02-12 20:50] VITALS: BMI 18.4
[2019-02-12] MEDS: FLUTICASONE 50MCG NASAL SPRAY NAS SCH (21:00)
[2019-02-12] MEDS ORDERED: TAMSULOSIN 0.4 MG SR CAP PO SCH (21:00)
[2019-02-12] MEDS ORDERED: FINASTERIDE 5 MG TAB PO SCH (21:00)
[2019-02-12] MEDS: GUAIFENESIN 600 MG SA TAB PO SCH (22:10)
[2019-02-12] MEDS: ENSURE ENLIVE 237 ML CAN PO SCH (22:11)
[2019-02-13 04:53] LABS: Urine Appearance CLEAR; Urine Bilirubin NEGATIVE (NEG); Urine Blood NEGATIVE (NEG); Urine Color DK YELLOW; Urine Glucose NEGATIVE (NEG); Urine Protein TRACE (NEG); Urine Specific Gravity >=1.030 (1.005-1.030); Urine pH 6.5 (5.0-7.0)
[2019-02-13 04:55] LABS: Urine Microscopic Reflex ORDER UMIC
[2019-02-13 05:02] LABS: Urine Mucus 2+ /HPF (NONE SEEN)
[2019-02-13 05:03] LABS: Urine Bacteria <20 /HPF (NONE SEEN); Urine Culture Reflex Order NOT NEEDED; Urine RBC <5 /HPF (NONE SEEN)
[2019-02-13 05:07] LABS: Absolute Lymphocytes (CBC) 0.5 K/uL (0.7-4.9); Basophils % 0.1 % (0-1.3); Eosinophils % 0.2 % (0-4.4); Hematocrit 29.1 % (39.6-49.0); Lymphocytes % 2.3 % (15.3-44.8); MPV 9.8 fL (7.6-11.3); Monocytes % 1.1 % (3.3-12.3); RBC Red Blood Cell Count 3.05 M/uL (4.33-5.43)
[2019-02-13 05:27] LABS: BUN Blood Urea Nitrogen 15 mg/dL (7-18); Bicarbonate 30 mmol/L (21-32); Glucose Level 83 mg/dL (74-106); Potassium 4.5 mmol/L (3.5-5.1); Sodium Level 141 mmol/L (136-145)
[2019-02-13] MEDS ORDERED: PANTOPRAZOLE 40MG TABLET PO SCH (06:30)
[2019-02-13] MEDS ORDERED: AMLODIPINE 2.5 MG TAB PO SCH (09:00)
[2019-02-13] MEDS ORDERED: FOLIC ACID 1 MG TABLET PO SCH (09:00)
[2019-02-13] MEDS: ENSURE ENLIVE 237 ML CAN PO SCH (09:00)
[2019-02-13] MEDS ORDERED: ENOXAPARIN 40 MG/0.4 ML SQ SCH (09:00)
[2019-02-13] MEDS: FLUTICASONE 50MCG NASAL SPRAY NAS SCH (09:02)
[2019-02-13] MEDS: GUAIFENESIN 600 MG SA TAB PO SCH (09:02)
[2019-02-13 09:04] VITALS: BP 109/51
[2019-02-13 09:22] VITALS: O2SAT 96
[2019-02-13] MEDS ORDERED: VANCOMYCIN/NS 1 gm 1 GM/250 ML BAG IV ONE (11:00)
--- NOTE | 2019-02-13 11:40 | RAD REPORT ---
EXAM DESCRIPTION: RAD - Chest Pa And Lat (2 Views) - 02/13/2019 6:47 am CLINICAL HISTORY: follow up Pneumonia LLL Chest pain. COMPARISON: Chest Single View dated 02/12/2019; Chest Single View dated 11/22/2018; Chest Single View dated 06/15/2018; Chest Pa And Lat (2 Views) dated 05/07/2016; Chest Abdomen Pelvis W Cont dated 019 FINDINGS: Prominent diffuse emphysematous pattern is present. The heart is normal in size. Aortic at herosclerosis. Right-sided port catheter has tip in the SVC. IMPRESSION: Prominent COPD.
--- NOTE | 2019-02-13 12:25 | P.DS ---
Admission Date: 02/12/19 Discharge Date: 02/13/19 Primary Care Provider: Dr. So; Oncology-Dr. Leon Reason for Admission: Cough, shortness of breath Brief History of Present Illness: see hc Hospital Course: 73-year-old male with history of stage IV gastric cancer came to the emergency room with increasing cough, congestion and shortness of breath. CT showed left lower lobe pneumonia. on the second day of admission pt denied SOb or CP labs reviewed WBC 20 ,discussed with oncology DR Domingo and confirmed that pt received neulasta on 02/10/19 pt clinically and hypodermically stable pt was managed for : left lower lobe pneumonia Stage IV gastric cancer on chemotherapy BPH GERD Hypertension Malnutrition Plan: IV abx cough syrup influenza -ve continue chemotherpay as op ppi continue norvasc for HTN for malnutrition encourage oral intake Vital Signs/Physical Exam: Temp Pulse Resp BP Pulse Ox 98 F 83 18 109/51 L 98 02/13/19 08:00 02/13/19 09:00 02/13/19 08:00 02/13/19 09:00 02/13/19 08:00 General: Alert, In no apparent distress, Oriented x3 HEENT: Atraumatic, Normocephalic, PERRLA Respiratory: Clear to auscultation bilaterally, Normal air movement Cardiovascular: No edema, Regular rate/rhythm, Normal S1 S2 Gastrointestinal: Normal bowel sounds, Hypoactive, Soft and benign, Non- distended Musculoskeletal: No clubbing, No swelling Integumentary: No rashes Neurological: Normal gait, Normal strength at 5/5 x4 extr Laboratory Data at Discharge: WBC 20.5 K/uL (4.3-10.9) H* D 02/13/19 04:51 Hgb 9.8 g/dL (13.6-17.9) L 02/13/19 04:51 Hct 29.1 % (39.6-49.0) L D 02/13/19 04:51 Plt Count 114 K/uL (152-406) L 02/13/19 04:51 Sodium 141 mmol/L (136-145) 02/13/19 04:51 Potassium 4.5 mmol/L (3.5-5.1) 02/13/19 04:51 BUN 15 mg/dL (7-18) 02/13/19 04:51 Creatinine 0.39 mg/dL (0.55-1.3) L 02/13/19 04:51 Glucose 83 mg/dL (74-106) 02/13/19 04:51 Magnesium 2.0 mg/dL (1.8-2.4) 02/13/19 04:51 Home Medications: Amlodipine Besylate [Norvasc] 2.5 mg PO DAILY 02/12/19 Docusate [Colace Cap*] 1 cap PO DAILY 02/12/19 Finasteride [Proscar*] 5 mg PO DAILY 02/12/19 Fluticasone [Flovent Hfa 110*] 1 spray IN DAILY 02/12/19 Loratadine 10 mg PO DAILY 02/12/19 Magnesium Oxide [Magnesium] 250 mg PO DAILY 02/12/19 Niacin 500 mg PO DAILY 02/12/19 Omeprazole [Prilosec] 40 mg PO BID 02/12/19 Potassium Chloride 1 tab PO DAILY 02/12/19 Sucralfate [Carafate*] 1 mg PO QID 02/12/19 Tamsulosin HCl [Flomax] 0.45 mg PO DAILY 02/12/19 Levofloxacin [Levaquin] 500 mg PO DAILY 6 Days #6 tablet 02/13/19 New Medications: Levofloxacin [Levaquin] 500 mg PO DAILY 6 Days #6 tablet Patient Discharge Instructions: f/up with PCP for continuation fo care Diet: Low sodium Activity: Ad viktor Followup: Kell Allen MD [ACTIVE - CAN ADMIT] - Katrin Schafer MD [Primary Care Provider] -
[2019-02-13 15:05] VITALS: TEMP 98.1
[2019-02-13] MEDS ORDERED: VANCOMYCIN/NS 1 gm 1 GM/250 ML BAG IV SCH ×2 (17:00→23:00)
== END 2019-02-13 15:00 | disposition home or self-care (01) ==
LOC: ER 14:23 → ERHOLD 18:16 → 2ND 19:52
PROVIDERS: ADMIT Family Medicine; ATTEND Internal Medicine
DX: J18.9 Pneumonia, unspecified organism (principal); C16.9 Malignant neoplasm of stomach, unspecified; D72.829 Elevated white blood cell count, unspecified; N40.0 Benign prostatic hyperplasia without lower urinary tract symptoms; I10 Essential (primary) hypertension; K21.9 Gastro-esophageal reflux disease without esophagitis; E46 Unspecified protein-calorie malnutrition; J44.9 Chronic obstructive pulmonary disease, unspecified; K82.8 Other specified diseases of gallbladder; G62.9 Polyneuropathy, unspecified; D64.9 Anemia, unspecified; Z79.899 Other long term (current) drug therapy
CPT/HCPCS: 96365; 87040 ×4; 87070; 85025 ×2; 80048 ×2; 36415; 83735; 87081; 83605 ×2; 84145; 87804 ×2; 71260; 74177; 71045; 71046; 96375; 99285; 96366; Q9967; C9113; J1650; J3370; J0696; J7030; G0378 ×2; 81003; 81015

== ENCOUNTER 2019-07-10 00:38 | Emergency (ER) | payer OTHER ==
[2019-07-10 02:26] LABS: Protime INR 1.11
[2019-07-10 02:31] LABS: Absolute Lymphocytes (CBC) 0.4 K/uL (0.7-4.9); Basophils % 0.2 % (0-1.3); Hematocrit 42.1 % (39.6-49.0); MPV 8.3 fL (7.6-11.3); RBC Red Blood Cell Count 4.44 M/uL (4.33-5.43)
[2019-07-10 02:56] LABS: ALT/SGPT 167 U/L (12-78); AST/SGOT 227 U/L (15-37); Albumin 2.6 g/dL (3.4-5.0); Alkaline Phosphatase 926 U/L (45-117); BUN Blood Urea Nitrogen 20 mg/dL (7-18); Bicarbonate 30 mmol/L (21-32); Bilirubin Direct 1.3 mg/dL (0-0.2); Bilirubin Total 1.9 mg/dL (0.2-1.0); Creatine Phosphokinase 39 U/L (39-308); Glucose Level 90 mg/dL (74-106); Lipase 67 U/L (73-393); Potassium 3.7 mmol/L (3.5-5.1); Protein, Total 5.6 g/dL (6.4-8.2); Sodium Level 141 mmol/L (136-145); Troponin (Emerg Dept Use Only) 0.02 ng/mL (0.0-0.045)
[2019-07-10] MEDS ORDERED: VANCOMYCIN 1 GM/VIAL ONE (03:26)
[2019-07-10] MEDS ORDERED: NA CHLORIDE 0.9% 250 ML ONE (03:26)
[2019-07-10] MEDS ORDERED: CEFEPIME 1 GM/100 ML BAG IV ONE (03:27)
[2019-07-10 03:51] LABS: Urine Blood NEGATIVE (NEG); Urine Glucose NEGATIVE (NEG); Urine Protein 2+ (NEG); Urine pH 5.5 (5.0-7.0)
[2019-07-10 03:55] LABS: Urine Bacteria <20 /HPF (NONE SEEN); Urine Culture Reflex Order NOT NEEDED; Urine Mucus HEAVY /HPF (NONE SEEN); Urine RBC NONE SEEN /HPF (NONE SEEN)
[2019-07-10 03:56] LABS: Blood Morphology Comment NOT SEEN (NOT SEEN); Platelet Estimate DECR; Urine White Blood Cell Casts OK
[2019-07-10] MEDS ORDERED: NA CHLORIDE 0.9% 1,000 ML ONE (08:22)
--- NOTE | 2019-07-10 08:37 | EDPHYS ---
Physician Documentation [facility] Name: Zachariah Ball Age: 73 yrs Sex: Male : 1945 Arrival Date: 07/10/2019 Time: 00:42 Bed 16 Private MD: ED Physician Zachery Guido HPI: 07/10 07:06 This 73 yrs old Male presents to ER via Wheelchair with complaints of Fever, wa CHILLS. 07:06 The patient reports fever, not measured (subjective). Onset: The symptoms/episode wa began/occurred today. Modifying factors: there are no obvious modifying factors. Associated signs and symptoms: Pertinent negatives: abdominal pain, cough, shortness of breath, sore throat. Severity of symptoms: At their worst the symptoms were moderate in the emergency department the symptoms have improved. The patient has not experienced similar symptoms in the past. The patient has not recently seen a physician. pt on chemo. states his doctor told him if he ever developed a fever need to come to ED. Historical: - Allergies: 01:06 No Known Allergies; jd3 - Home Meds: 01:06 Amitiza 8 mcg Oral cap as needed for constipation [Active]; amlodipine 2.5 mg tab 1 tab jd3 once daily [Active]; Benicar HCT 40-25 mg Oral tab 1 tab once daily [Active]; capecitabine 500 mg Oral tab take 2 tabs BID on Friday-Friday weekly with radiation therapy [Active]; Carafate 1 gram Oral tab 1 tab 4 times per day [Active]; chlorpheniramine maleate 4 mg Oral tab daily [Active]; Dexilant 60 mg Oral CpDB 1 cap once daily [Active]; diclofenac sodium 75 mg Oral TbEC 1 tab 2 times per day [Active]; finasteride 5 mg Oral tab 1 tab once daily [Active]; fluticasone 50 mcg/actuation nasal spsn 1 spray once daily [Active]; gemfibrozil 600 mg Oral tab 1 tab 2 times per day [Active]; Iron 65mg (Nature Made) once a day daily [Active]; loratadine 10 mg Oral tab 1 tab once daily [Active]; magnesium oxide 250 mg Oral tab daily [Active]; niacin 500 mg Oral cpER [Active]; omeprazole 40 mg Oral cpDR 1 cap once daily [Active]; potassium chloride 20 mEq Oral TbTQ 1 tab once daily [Active]; prochlorperazine maleate 5 mg Oral tab 1-2 tabs every 8 hours PRN for nausea [Active]; PROTEASE once a week [Active]; Protonix 40 mg Oral TbEC 1 tab 2 times per day [Active]; STOOL SOFTNER [Active]; sucralfate 1 gram Oral tab 1 tab 4 times per day [Active]; tamsulosin 0.4 mg Oral cp24 1 cap once daily [Active]; - PMHx: 01:06 Chemo and Radiation Tx (Started August 2016/Diagnosed with Stomach Cancer May jd3 2015); Anemia; Hypertension; neuropathy; stomach cancer; ADD/ADHD; - PSHx: 01:07 port placed right chest wall; jd3 - Immunization history:: Adult Immunizations up to date. - Social history:: Smoking status: Patient/guardian denies using tobacco, but has a distant history of tobacco abuse. - Ebola Screening: : Patient negative for fever greater than or equal to 101.5 degrees Fahrenheit, and additional compatible Ebola Virus Disease symptoms. - Family history:: not pertinent. - Hospitalizations: : No recent hospitalization is reported. ROS: 07:08 Eyes: Negative for injury, pain, redness, and discharge, ENT: Negative for injury, wa pain, and discharge, Neck: Negative for injury, pain, and swelling, Cardiovascular: Negative for chest pain, palpitations, and edema, Respiratory: Negative for shortness of breath, cough, wheezing, and pleuritic chest pain, Abdomen/GI: Negative for abdominal pain, nausea, vomiting, diarrhea, and constipation, Back: Negative for injury and pain, : Negative for injury, bleeding, discharge, and swelling, MS/Extremity: Negative for injury and deformity, Skin: Negative for injury, rash, and discoloration, Neuro: Negative for headache, weakness, numbness, tingling, and seizure, Psych: Negative for depression, anxiety, suicide ideation, homicidal ideation, and hallucinations. 07:08 Constitutional: Positive for chills, fever. 07:08 All other systems are negative. Exam: 07:09 Head/Face: Normocephalic, atraumatic. Eyes: Pupils equal round and reactive to light, wa extra-ocular motions intact. Lids and lashes normal. Conjunctiva and sclera are non-icteric and not injected. Cornea within normal limits. Periorbital areas with no swelling, redness, or edema. ENT: Nares patent. No nasal discharge, no septal abnormalities noted. Tympanic membranes are normal and external auditory canals are clear. Oropharynx with no redness, swelling, or masses, exudates, or evidence of obstruction, uvula midline. Mucous membranes moist. Neck: Trachea midline, no thyromegaly or masses palpated, and no cervical lymphadenopathy. Supple, full range of motion without nuchal rigidity, or vertebral point tenderness. No Meningismus. Cardiovascular: Regular rate and rhythm with a normal S1 and S2. No gallops, murmurs, or rubs. Normal PMI, no JVD. No pulse deficits. Respiratory: Lungs have equal breath sounds bilaterally, clear to auscultation and percussion. No rales, rhonchi or wheezes noted. No increased work of breathing, no retractions or nasal flaring. Abdomen/GI: Soft, non-tender, with normal bowel sounds. No distension or tympany. No guarding or rebound. No evidence of tenderness throughout. Back: No spinal tenderness. No costovertebral tenderness. Full range of motion. Skin: Warm, dry with normal turgor. Normal color with no rashes, no lesions, and no evidence of cellulitis. MS/ Extremity: Pulses equal, no cyanosis. Neurovascular intact. Full, normal range of motion. Neuro: Awake and alert, GCS 15, oriented to person, place, time, and situation. Cranial nerves II-XII grossly intact. Motor strength 5/5 in all extremities. Sensory grossly intact. Cerebellar exam normal. Normal gait. Psych: Awake, alert, with orientation to person, place and time. Behavior, mood, and affect are within normal limits. 07:09 Constitutional: The patient appears in no acute distress, alert. Vital Signs: 01:00 BP 98 / 66; Pulse 89; Resp 17 S; Temp 98.6(O); Pulse Ox 97% on R/A; Weight 60.33 kg jd3 (R); Height 5 ft. 10 in. (177.80 cm) (R); Pain 0/10; 02:06 BP 101 / 65; Pulse 88; Resp 16 S; Pulse Ox 97% on R/A; Pain 0/10; jd3 03:10 BP 99 / 64; Pulse 64; Resp 18 S; Pulse Ox 99% on R/A; Pain 0/10; jd3 04:22 BP 110 / 70; Pulse 58; Resp 17 S; Pulse Ox 97% on R/A; jd3 05:14 BP 109 / 71; Pulse 57; Resp 16 S; Pulse Ox 96% on R/A; Pain 0/10; jd3 06:06 BP 128 / 70; Pulse 60; Resp 16 S; Pulse Ox 96% on R/A; jd3 07:19 BP 129 / 76; Pulse 59; Resp 17; Pulse Ox 97% on R/A; Pain 0/10; tw2 08:32 BP 160 / 74; Pulse 54; Resp 17; Pulse Ox 95% on R/A; tw2 09:44 BP 165 / 78; Pulse 53; Resp 17; Pulse Ox 99% on R/A; tw2 10:37 BP 160 / 74; Pulse 53; Resp 17; Pulse Ox 98% on R/A; tw2 01:00 Body Mass Index 19.08 (60.33 kg, 177.80 cm) jd3 MDM: 01:14 Patient medically screened. nh 07:10 Differential diagnosis: viral Infection, bacterial infection, pneumonia UTI. Data nh reviewed: vital signs, nurses notes. Test interpretation: by ED physician or midlevel provider: labs noted for elevated LFTs. 07:13 Test interpretation: by ED physician or midlevel provider: low platelets. . Response to nh treatment: the patient's symptoms have markedly improved after treatment. 07:17 ED course: nml vitals in ED. labs noted. pt not neutropenic. source for fever not wa observed. empiric abx given. will admit for obs. reassess. 07:18 Test interpretation: by ED physician or midlevel provider: EKG: HR 74. sinus. nml axis. wa diffuse ST-Tchanges, non-specific. interp by me. Admission orders: after a detailed discussion of the patient's condition and case, the admit orders are written by me. 07/10 01:39 Order name: C-Reactive Protein 07/10 01:39 Order name: Basic Metabolic Panel 07/10 01:39 Order name: Blood Culture Adult (2) 07/10 01:39 Order name: CBC with Diff 07/10 01:39 Order name: CPK 07/10 01:39 Order name: Lactate 07/10 01:39 Order name: LFT's 07/10 01:39 Order name: Lipase 07/10 01:39 Order name: Procalcitonin nh 07/10 01:39 Order name: Protime (+inr) nh 07/10 01:39 Order name: Troponin (emerg Dept Use Only) nh 07/10 01:39 Order name: Urine Microscopic Only nh 07/10 01:39 Order name: Flu nh 07/10 01:39 Order name: Strep nh 07/10 02:14 Order name: Glucose, Ancillary Testing; Complete Time: 03:16 EDMS 07/10 02:27 Order name: Protime (+INR); Complete Time: 03:14 EDMS 07/10 02:32 Order name: CBC with Automated Diff; Complete Time: 06:12 EDMS 07/10 02:42 Order name: Influenza Screen (A ; Complete Time: 03:16 EDMS 07/10 02:48 Order name: Lactate; Complete Time: 03:16 EDMS 07/10 02:55 Order name: Procalcitonin; Complete Time: 03:16 EDMS 07/10 02:56 Order name: Group A Streptococcus Rapid Sc; Complete Time: 03:21 EDMS 07/10 02:57 Order name: Basic Metabolic Panel; Complete Time: 03:14 EDMS 07/10 02:57 Order name: Liver (Hepatic) Function; Complete Time: 03:16 EDMS 07/10 02:57 Order name: Creatine Phosphokinase; Complete Time: 03:16 EDMS 07/10 02:57 Order name: Troponin (Emerg Dept Use Only); Complete Time: 03:16 EDMS 07/10 02:57 Order name: C-Reactive Protein; Complete Time: 03:16 EDMS 07/10 02:57 Order name: Lipase; Complete Time: 03:14 EDMS 07/10 03:18 Order name: Urine Dipstick--Ancillary (enter results) ar5 07/10 03:51 Order name: Urine Dipstick-Ancillary; Complete Time: 06:12 EDMS 07/10 03:55 Order name: Urine Microscopic Only; Complete Time: 06:12 EDMS 07/10 01:39 Order name: Chest Single View XRAY nh 07/10 01:39 Order name: Accucheck; Complete Time: 02:05 nh 07/10 01:39 Order name: Cardiac monitoring; Complete Time: 01:42 nh 07/10 01:39 Order name: EKG - Nurse/Tech; Complete Time: 01:42 nh 07/10 01:39 Order name: IV Saline Lock - Large Bore; Complete Time: 02:05 nh 07/10 01:39 Order name: Labs collected and sent; Complete Time: 02:05 nh 07/10 01:39 Order name: O2 Per Protocol; Complete Time: 01:41 nh 07/10 01:39 Order name: O2 Sat Monitoring; Complete Time: 01:41 nh 07/10 01:39 Order name: Urine Dipstick-Ancillary (obtain specimen); Complete Time: 03:23 nh 07/10 03:56 Order name: CBC Smear Scan; Complete Time: 06:12 EDMS 07/10 06:15 Order name: CT Abd/Pelvis - IV Contrast Only nh 07/10 07:49 Order name: US Abdomen Limited vianey 07/10 09:08 Order name: EDIL 07/10 09:18 Order name: [facility] Administered Medications: 03:32 Drug: Cefepime 1 grams Route: IVPB; Rate: 200 ml/hr; Infused Over: 30 mins; Site: left jd3 antecubital; 04:12 Follow up: Response: No adverse reaction; IV Status: Completed infusion jd3 04:11 Drug: vancoMYCIN 1 grams Route: IVPB; Infused Over: 2 hrs; Site: left antecubital; jd3 08:30 Drug: NS 0.9% 1000 ml Route: IV; Rate: 1 bolus; Site: left forearm; tw2 09:22 Follow up: Response: No adverse reaction; IV Status: Completed infusion; IV Intake: tw2 1000ml Disposition: 07/10/19 08:37 Transfer ordered to [facility]. Diagnosis are Fever, unspecified, Cholecystitis, Cholelithiasis, Pleural effusion in conditions classified elsewhere, Ascites - stage 4 gastric cancer. - Reason for transfer: Higher level of care. - [facility] [place]. - Condition is Fair. - Problem is new. - Symptoms have improved. Signatures: Dispatcher [facility] EDIL Zachery Guido MD MD cha Wise, Tara, RN RN tw2 Tyler Patel MD MD wa Davies, Jonathon, RN RN jd3 Corrections: (The following items were deleted from the chart) 10:39 08:37 07/10/2019 08:37 Transfer ordered to [facility]. Diagnosis is tw2 Fever, unspecified; Cholecystitis; Cholelithiasis; Pleural effusion in conditions classified elsewhere; Ascites - stage 4 gastric cancer. Reason for transfer: Higher level of care. [facility] [place]. Condition is Fair. Problem is new. Symptoms have improved. vianey
--- NOTE | 2019-07-10 08:37 | ER ---
Nurse's Notes [facility] Name: Zachariah Ball Age: 73 yrs Sex: Male : 1945 Arrival Date: 07/10/2019 Time: 00:42 Bed 16 Private MD: Diagnosis: Fever, unspecified;Cholecystitis;Cholelithiasis;Pleural effusion in conditions classified elsewhere;Ascites-stage 4 gastric cancer Presentation: 07/10 00:56 Presenting complaint: Patient states: "I started to get a fever and chills today. it jd3 got to 101.2 and I took some Tylenol #3. When I had the chills I got under a heated blanket and took my temperature . I feel fine now, but my cancer doctor to come to the ER if I had a fever over 100.". Transition of care: patient was not received from another setting of care. Onset of symptoms was July 10, 2019. Risk Assessment: Do you want to hurt yourself or someone else? Patient reports no desire to harm self or others. Initial Sepsis Screen: Does the patient meet any 2 criteria? No. Patient's initial sepsis screen is negative. Does the patient have a suspected source of infection? No. Patient's initial sepsis screen is negative. Care prior to arrival: None. 00:56 Method Of Arrival: Wheelchair jd3 00:56 Acuity: MONSE 3 jd3 Historical: - Allergies: 01:06 No Known Allergies; jd3 - Home Meds: 01:06 Amitiza 8 mcg Oral cap as needed for constipation [Active]; amlodipine 2.5 mg tab 1 tab jd3 once daily [Active]; Benicar HCT 40-25 mg Oral tab 1 tab once daily [Active]; capecitabine 500 mg Oral tab take 2 tabs BID on Friday-Friday weekly with radiation therapy [Active]; Carafate 1 gram Oral tab 1 tab 4 times per day [Active]; chlorpheniramine maleate 4 mg Oral tab daily [Active]; Dexilant 60 mg Oral CpDB 1 cap once daily [Active]; diclofenac sodium 75 mg Oral TbEC 1 tab 2 times per day [Active]; finasteride 5 mg Oral tab 1 tab once daily [Active]; fluticasone 50 mcg/actuation nasal spsn 1 spray once daily [Active]; gemfibrozil 600 mg Oral tab 1 tab 2 times per day [Active]; Iron 65mg (Nature Made) once a day daily [Active]; loratadine 10 mg Oral tab 1 tab once daily [Active]; magnesium oxide 250 mg Oral tab daily [Active]; niacin 500 mg Oral cpER [Active]; omeprazole 40 mg Oral cpDR 1 cap once daily [Active]; potassium chloride 20 mEq Oral TbTQ 1 tab once daily [Active]; prochlorperazine maleate 5 mg Oral tab 1-2 tabs every 8 hours PRN for nausea [Active]; PROTEASE once a week [Active]; Protonix 40 mg Oral TbEC 1 tab 2 times per day [Active]; STOOL SOFTNER [Active]; sucralfate 1 gram Oral tab 1 tab 4 times per day [Active]; tamsulosin 0.4 mg Oral cp24 1 cap once daily [Active]; - PMHx: 01:06 Chemo and Radiation Tx (Started August 2016/Diagnosed with Stomach Cancer May jd3 2015); Anemia; Hypertension; neuropathy; stomach cancer; ADD/ADHD; - PSHx: 01:07 port placed right chest wall; jd3 - Immunization history:: Adult Immunizations up to date. - Social history:: Smoking status: Patient/guardian denies using tobacco, but has a distant history of tobacco abuse. - Ebola Screening: : Patient negative for fever greater than or equal to 101.5 degrees Fahrenheit, and additional compatible Ebola Virus Disease symptoms. - Family history:: not pertinent. - Hospitalizations: : No recent hospitalization is reported. Screenin:07 Abuse screen: Denies threats or abuse. Nutritional screening: No deficits noted. jd3 Tuberculosis screening: No symptoms or risk factors identified. Fall Risk Ambulatory Aid- None/Bed Rest/Nurse Assist (0 pts). Gait- Normal/Bed Rest/Wheelchair (0 pts) Mental Status- Oriented to own ability (0 pts). Total Sotomayor Fall Scale indicates No Risk (0-24 pts). Assessment: 01:08 General: Appears in no apparent distress. comfortable, slender, Behavior is calm, jd3 cooperative, appropriate for age. Pain: Denies pain. Neuro: Level of Consciousness is awake, alert, obeys commands, Oriented to person, place, time, situation. Cardiovascular: Heart tones S1 S2 present Capillary refill < 3 seconds Patient's skin is warm and dry. Respiratory: Airway is patent Respiratory effort is even, unlabored, Respiratory pattern is regular, symmetrical, Breath sounds are clear bilaterally. Denies cough, shortness of breath. GI: No signs and/or symptoms were reported involving the gastrointestinal system. Patient currently denies diarrhea, nausea, vomiting. : No signs and/or symptoms were reported regarding the genitourinary system. EENT: No signs and/or symptoms were reported regarding the EENT system. Derm: Skin is intact, Skin is dry, Skin is normal, Skin temperature is warm. Musculoskeletal: Circulation, motion, and sensation intact. Range of motion: intact in all extremities. 02:06 Reassessment: Patient appears in no apparent distress at this time. Patient and/or jd3 family updated on plan of care and expected duration. Pain level reassessed. Patient is alert, oriented x 3, equal unlabored respirations, skin warm/dry/pink. Patient denies pain at this time. 03:12 Reassessment: Patient appears in no apparent distress at this time. No changes from jd3 previously documented assessment. Patient and/or family updated on plan of care and expected duration. Pain level reassessed. Patient is alert, oriented x 3, equal unlabored respirations, skin warm/dry/pink. Patient denies pain at this time. 04:21 Reassessment: Patient appears in no apparent distress at this time. Patient and/or jd3 family updated on plan of care and expected duration. Pain level reassessed. Patient is alert, oriented x 3, equal unlabored respirations, skin warm/dry/pink. Patient denies pain at this time. 05:13 Reassessment: Patient appears in no apparent distress at this time. Patient and/or jd3 family updated on plan of care and expected duration. Pain level reassessed. Patient is alert, oriented x 3, equal unlabored respirations, skin warm/dry/pink. awaiting disposition from provider. Patient denies pain at this time. 06:06 Reassessment: Patient appears in no apparent distress at this time. No changes from jd3 previously documented assessment. Patient and/or family updated on plan of care and expected duration. Pain level reassessed. Patient is alert, oriented x 3, equal unlabored respirations, skin warm/dry/pink. 07:21 Reassessment: Patient appears in no apparent distress at this time. Patient and/or tw2 family updated on plan of care and expected duration. Pain level reassessed. Patient is alert, oriented x 3, equal unlabored respirations, skin warm/dry/pink. Patient denies pain at this time. 08:31 Reassessment: Patient appears in no apparent distress at this time. No changes from tw2 previously documented assessment. Patient and/or family updated on plan of care and expected duration. Pain level reassessed. Patient is alert, oriented x 3, equal unlabored respirations, skin warm/dry/pink. US at bedside at this time. 09:44 Reassessment: Patient appears in no apparent distress at this time. No changes from tw2 previously documented assessment. Patient and/or family updated on plan of care and expected duration. Pain level reassessed. Patient is alert, oriented x 3, equal unlabored respirations, skin warm/dry/pink. 10:37 Reassessment: Patient appears in no apparent distress at this time. No changes from tw2 previously documented assessment. Patient and/or family updated on plan of care and expected duration. Pain level reassessed. Patient is alert, oriented x 3, equal unlabored respirations, skin warm/dry/pink. Vital Signs: 01:00 BP 98 / 66; Pulse 89; Resp 17 S; Temp 98.6(O); Pulse Ox 97% on R/A; Weight 60.33 kg jd3 (R); Height 5 ft. 10 in. (177.80 cm) (R); Pain 0/10; 02:06 BP 101 / 65; Pulse 88; Resp 16 S; Pulse Ox 97% on R/A; Pain 0/10; jd3 03:10 BP 99 / 64; Pulse 64; Resp 18 S; Pulse Ox 99% on R/A; Pain 0/10; jd3 04:22 BP 110 / 70; Pulse 58; Resp 17 S; Pulse Ox 97% on R/A; jd3 05:14 BP 109 / 71; Pulse 57; Resp 16 S; Pulse Ox 96% on R/A; Pain 0/10; jd3 06:06 BP 128 / 70; Pulse 60; Resp 16 S; Pulse Ox 96% on R/A; jd3 07:19 BP 129 / 76; Pulse 59; Resp 17; Pulse Ox 97% on R/A; Pain 0/10; tw2 08:32 BP 160 / 74; Pulse 54; Resp 17; Pulse Ox 95% on R/A; tw2 09:44 BP 165 / 78; Pulse 53; Resp 17; Pulse Ox 99% on R/A; tw2 10:37 BP 160 / 74; Pulse 53; Resp 17; Pulse Ox 98% on R/A; tw2 01:00 Body Mass Index 19.08 (60.33 kg, 177.80 cm) jd3 ED Course: 00:42 Patient arrived in ED. cf2 00:46 Alexandre Gutierrez, RN is Primary Nurse. jd3 01:00 Triage completed. jd3 01:01 Arm band placed on. jd3 01:08 Patient has correct armband on for positive identification. Placed in gown. Bed in low jd3 position. Call light in reach. Side rails up X 1. Adult w/ patient. 01:14 Tyler Patel MD is Attending Physician. wa 02:00 Inserted saline lock: 20 gauge in left antecubital area, using aseptic technique. Blood jd3 collected. 07:18 Primary Nurse role handed off by Alexandre Gutierrez RN tw2 07:18 Rebecca Johnson RN is Primary Nurse. tw2 07:24 Awaiting radiology results. Awaiting: PRIOR to discharge. tw2 07:38 Awaiting bed assignment, Awaiting: pending admission orders at this time after CT iw results. 07:48 Attending Physician role handed off by Tyler Patel MD vianey 07:48 Zachery Guido MD is Attending Physician. vianey 08:32 Awaiting radiology results. tw2 08:[address] Guido with Yoli Haas from the [facility]. 08:43 Ultrasound completed. Patient tolerated well. Notified ED Physician angela. sg3 08:59 connected the GI doctor cushion maker for [facility] with Dr. Guido for patient eb transfer consultation. 09:13 connected the hospitalist cushion maker for [facility] Dr. Hargrove with Dr. Guido for eb patient transfer consultation. 09:23 administrative approval given by Yoli Haas/ patient has been accepted to [facility] bed 2139/ Dr. Hargrove has accepted the patient in transfer/ report to be called to [phone]. 10:37 No provider procedures requiring assistance completed. Patient transferred, IV remains tw2 in place. 19:06 CT Abd/Pelvis - IV Contrast Only In Process Unspecified. EDMS Administered Medications: 03:32 Drug: Cefepime 1 grams Route: IVPB; Rate: 200 ml/hr; Infused Over: 30 mins; Site: left jd3 antecubital; 04:12 Follow up: Response: No adverse reaction; IV Status: Completed infusion jd3 04:11 Drug: vancoMYCIN 1 grams Route: IVPB; Infused Over: 2 hrs; Site: left antecubital; jd3 08:30 Drug: NS 0.9% 1000 ml Route: IV; Rate: 1 bolus; Site: left forearm; tw2 09:22 Follow up: Response: No adverse reaction; IV Status: Completed infusion; IV Intake: tw2 1000ml Intake: 09:22 IV: 1000ml; Total: 1000ml. tw2 Outcome: 08:37 ER care complete, transfer ordered by MD. winters 10:37 Transferred by ground EMS to [facility]. tw2 10:37 Condition: stable 10:37 Instructed on the need for transfer. 10:39 Patient left the ED. tw2 Signatures: Dispatcher [employer] EDMS Zachery Guido MD MD cha Williams, Irene, RN Rebecca Alonso RN RN tw2 Tyler Patel MD MD wa Davies, Jonathon, RN RN jMadeline Dye 3 Roxanna Carrero Celesta cf2 Corrections: (The following items were deleted from the chart) 04:12 04:11 vancoMYCIN 1 grams IVPB in right antecubital over 2 hrs jd3 jd3
--- NOTE | 2019-07-10 08:56 | RAD REPORT ---
EXAM DESCRIPTION: US - Abdomen Exam Limited - 07/10/2019 8:43 am CLINICAL HISTORY: ABD PAIN COMPARISON: Abdomen Pelvis W Contrast dated 07/10/2019 FINDINGS: Several punctate gallstones are present along with small quantity of sludge. Gallbladder w all is within normal limits at 3 mm. Ascites is present in the right upper quadrant. No gallbladder w all mass identified. Common bile duct is enlarged at 18 mm. A duct stone or mass was not evident. Imaging into the head of the pancreas region is limited. IMPRESSION: Multiple punctate stones and sludge are present in the gallbladder. No gallbladder wall thickening. Dilated common bile duct 18 mm without duct stone identifiable by sonography.
--- NOTE | 2019-07-10 09:10 | RAD REPORT ---
EXAM DESCRIPTION: RAD - Chest Single View - 07/10/2019 2:10 am CLINICAL HISTORY: Cough, fever, chills COMPARISON: January 2019 TECHNIQUE: AP portable chest image was obtained 0206 hours . FINDINGS: No focal lung parenchymal process. No failure or volume overload. Mediastinal and hilar re gions within normal limits and stable. Right-sided Port-A-Cath is in place. Heart and vasculature are normal. No measurable pleural effusion and no pneumothorax. No acute bony abnormality seen. No acute aortic findings suspected. IMPRESSION: No acute cardiopulmonary process. No significant change from comparison.
[2019-07-10 10:56] VITALS: TEMP 98.6
[2019-07-10 11:08] VITALS: BP 160/74; O2SAT 98
--- NOTE | 2019-07-11 12:47 | EKG ---
Test Date: 2019-07-10 Test Time: 01:41:24 [employer]ounds[employer] Laborer: ALEXANDRA MEASUREMENT RESULTS: Intervals: Rate: 74 [place]: 138 QRSD: 76 QT: 382 QTc: 424 [place]: P: 26 [place]: 138 QRS: 61 T: 64 INTERPRETIVE STATEMENTS: Sinus rhythm with premature supraventricular complexes Nonspecific T wave abnormality Abnormal ECG Compared to ECG 05/23/2004 13:44:00 Atrial premature complex(es) now present T-wave abnormality still present Electronically Signed On 07-11-19 12:45:21 ADMISSIONS DIRECTOR by Willian Canales
--- NOTE | 2019-07-12 14:44 | RAD REPORT ---
EXAM DESCRIPTION: CT - Abdomen Pelvis W Contrast - 07/10/2019 7:34 am CLINICAL HISTORY: The patient is 73 years old and is Male; fever, elevated liver enzymes TECHNIQUE: Axial computed tomography images of the abdomen and pelvis with intravenous contrast. S agittal and coronal reformatted images were created and reviewed. This CT exam was performed using one or more of the following dose reduction techniques: automated exposure control, adjustment of t he mA and/or kV according to patient size, and/or use of iterative reconstruction technique. COMPARISON: CT abdomen and pelvis June 28, 2019. FINDINGS: LUNG BASES: Unremarkable. No mass. No consolidation. PLEURAL SPACE: Small right and moderate left pleural effusions are present. ABDOMEN: LIVER: Unremarkable. No mass. GALLBLADDER AND BILE DUCTS: The gallbladder is distended. Biliary dilatation is present with the common bile duct measuring up to 1.1 cm. No calcified gallstones are seen. PANCREAS: The pancreas is atrophic. SPLEEN: Unremarkable. ADRENALS: Unremarkable. No mass. KIDNEYS AND URETERS: Unremarkable. The kidneys enhance symmetrically. No obstructing renal or ur eteral calculus is seen. No hydronephrosis or hydroureter. No perinephric fluid or stranding. STOMACH AND BOWEL: The stomach is decompressed. The small bowel is relatively normal in caliber. Colonic wall thickening involving the right colon is present. Extensive colonic diverticula within t he left colon is noted. There is no bowel obstruction. PELVIS: APPENDIX: No findings to suggest acute appendicitis. BLADDER: Unremarkable. No mass. REPRODUCTIVE: Unremarkable as visualized. ABDOMEN and PELVIS: INTRAPERITONEAL SPACE: Moderate amount of ascites is present throughout the abdomen and pelvis. No free air. BONES/JOINTS: No acute fracture. SOFT TISSUES: The soft tissues are normal. VASCULATURE: Atherosclerosis of the aorta is present. Aneurysm of abdominal aorta measuring 3.0 cm is noted. No evidence of rupture. LYMPH NODES: Unremarkable. No enlarged lymph nodes. IMPRESSION: 1. Distended gallbladder with moderate biliary dilatation. If there is clinical concer n for acute gallbladder pathology, findings could be further evaluated with ultrasound or HIDA scan. Evaluation of the biliary dilatation could be performed by MRCP. 2. Mild colonic wall thickening involving the right colon which may be secondary to focal colitis. 3. Moderate ascites. 4. Bilateral pleural effusions, left greater than right. 5. Abdominal aortic aneurysm. Recommend follow-up every 3 years. Reference: J Am Marina Radiol 2013;10:789-794. Electronically signed by: Willow Concepcion MD 07/10/2019 7:23 AM LINEN GRADER Due to temporary technical issues with the PACS/Fluency reporting system, reports are being signed by the in house radiologist as a courtesy to ensure prompt reporting. The interpreting radiologist is f ully responsible for the content of the report.
== END 2019-07-10 10:39 | disposition short-term general hospital (02) ==
LOC: ER 00:38
DX: K80.10 Calculus of gallbladder with chronic cholecystitis without obstruction (principal); J91.8 Pleural effusion in other conditions classified elsewhere; R18.8 Other ascites; I10 Essential (primary) hypertension; Z85.028 Personal history of other malignant neoplasm of stomach
CPT/HCPCS: 96365; 96361; 93005; 87040 ×2; 87070; 85025; 80048; 36415; 82550; 85610; 82947; 80076; 87081; 83605; 84484; 83690; 84145; 86140; 87804 ×2; 74177; 71045; 76705; 96375; 99285; Q9967; J0692; J7030 ×2; 81003; 81015

== ENCOUNTER 2019-07-15 21:11 | Emergency (ER) | payer OTHER ==
--- OUTSIDE RECORDS SUMMARY | 2019-07-15 21:14 | XMS REPORT ---
:1945 [facility] Organization [facility] Address [address] [place] [address] [address]. [address] [place] [address] Care Team Providers Name Role Phone MARCIA PANCHAL Unavailable Unavailable Problems This patient has no known problems. Allergies, Adverse Reactions, Alerts This patient has no known allergies or adverse reactions. Medications This patient has no known medications. Results Test Description Test Time Test Comments Text Results Atomic Results Result Comments BLOOD CULTURE 2019-07-15 19:01:00 Test Item Value Reference Range Comments CULTURE (BEAKER) (test axqq=7838) No growth in 5 days BLOOD [id number] 19:01:00 Test Item Value Reference Range Comments CULTURE (BEAKER) (test smid=5166) No growth in 5 days HEPATIC FUNCTION [id number] 04:01:00 Test Item Value Reference Range Comments TOTAL PROTEIN (BEAKER) (test smrq=977) 4.7 gm/dL 6.0-8.3 ALBUMIN (BEAKER) (test iukp=3309) 2.4 g/dL 3.5-5.0 BILIRUBIN TOTAL (BEAKER) (test ifzc=252) 0.8 mg/dL 0.2-1.2 BILIRUBIN DIRECT (BEAKER) (test lavb=257) 0.4 mg/dL 0.1-0.5 ALKALINE PHOSPHATASE (BEAKER) (test ukwz=408) 574 U/L 40-150 AST (SGOT) (BEAKER) (test ghkf=387) 52 U/L 5-34 ALT (SGPT) (BEAKER) (test vqyd=583) 58 U/L 6-55 RESPIRATORY PANEL [id number] 16:51:00 Test Item Value Reference Range Comments HUMAN METAPNEUMOVIRUS (BEAKER) (test Not detected Not detected, Equivocal wtxz=8421) RHINOVIRUS (BEAKER) (test xono=5744) Not detected Not detected, Equivocal INFLUENZA A (BEAKER) (test ajvl=9195) Not detected Not detected, Equivocal INFLUENZA A (NO SUBTYPE) (test irpy=6292) INFLUENZA A SUBTYPE H1 (BEAKER) (test jltt=1961) INFLUENZA A SUBTYPE H3 (BEAKER) (test cofg=8859) INFLUENZA A SUBTYPE H1-2009 (BEAKER) (test vbgv=5962) INFLUENZA B (BEAKER) (test purw=7664) Not detected Not detected, Equivocal RESPIRATORY SYNCYTIAL VIRUS (BEAKER) Not detected Not detected, Equivocal (test zirq=6481) PARAINFLUENZA VIRUS 1 (BEAKER) (test Not detected Not detected, Equivocal rksd=2197) PARAINFLUENZA VIRUS 2 (BEAKER) (test Not detected Not detected, Equivocal zwxi=2602) PARAINFLUENZA VIRUS 3 (BEAKER) (test Not detected Not detected, Equivocal qtwx=8204) PARAINFLUENZA VIRUS 4 (BEAKER) (test Not detected Not detected, Equivocal jyst=6120) ADENOVIRUS (BEAKER) (test boyg=1727) Not detected Not detected, Equivocal CORONAVIRUS 229E (BEAKER) (test Not detected Not detected, Equivocal vqdv=5007) CORONAVIRUS HKU1 (BEAKER) (test Not detected Not detected, Equivocal mnxy=0852) CORONAVIRUS NL63 (BEAKER) (test Not detected Not detected, Equivocal rzzr=8377) CORONAVIRUS OC43 (BEAKER) (test Not detected Not detected, Equivocal ptsd=3380) BORDETELLA PERTUSSIS (BEAKER) (test Not detected Not detected, Equivocal euss=9851) CHLAMYDOPHILA PNEUMONIAE (BEAKER) (test Not detected Not detected, Equivocal upvu=6490) MYCOPLASMA PNEUMONIAE (BEAKER) (test Not detected Not detected, Equivocal ualx=4346) Other viruses and bacteria not targeted by this PCR panel cannot be excluded; therefore clinical correlation and follow up of serology, culture results, and other molecular studies is required. The results are not intended to be used as the sole means for clinical diagnosis or patient management decisions. This sample was tested at the [facility] using the [employer] InternationalArray Respiratory Panel. It is FDA cleared and has been verified and approved by the [facility] for clinical use on nasopharyngeal swab specimens.The performance of the FilmArrayRP has not been established in individuals who received influenza vaccine. Recent administration ofa nasal influenza vaccine may cause false positive results for Influenza A and/orInfluenza B.FL, [id number] 14:37:00INTRA OP IMAGINGReason for exam:->abnormal imagingFINAL REPORT A fluoroscopic unit was utilized for a procedure performed in the operating room. No interpretation was requested. Please refer to the operative report regarding findings. Please refer to PACS for patient radiation dose information. Signed: JR Louis Robert MDReport Verified Date/Time: 07/12/2019 14:37:30 Reading Location: [facility] Radiology Reading Room PROTHROMBIN [id number] 05:33:00 Test Item Value Reference Range Comments PROTIME (BEAKER) (test btbu=373) 13.9 seconds 11.9-14.2 INR (BEAKER) (test gefg=255) 1.1 <=5.9 Effective 01/27/2019: PT Reference Range ChangeNew: 11.9-14.2 Previous: 11.7- 14.7RECOMMENDED COUMADIN/WARFARIN INR THERAPY RANGESSTANDARD DOSE: 2.0-3.0 Includes: PROPHYLAXIS for venous thrombosis, systemic embolization; TREATMENT for venous thrombosis and/or pulmonary embolus.HIGH RISK: Target INR is2.5-3.5 for patients wiht mechanical heart valves.BASIC METABOLIC [id number] 05:30: 00 Test Item Value Reference Range Comments SODIUM (BEAKER) (test 136 meq/L 136-145 wdvt=354) POTASSIUM (BEAKER) (test 3.3 meq/L 3.5-5.1 saxv=890) CHLORIDE (BEAKER) (test 108 meq/L 98-107 tgia=389) CO2 (BEAKER) (test 26 meq/L 22-29 hhnn=635) BLOOD UREA NITROGEN 23 mg/dL 7-21 (BEAKER) (test azlb=867) CREATININE (BEAKER) (test 0.57 mg/dL 0.57-1.25 hzyc=974) GLUCOSE RANDOM (BEAKER) 75 mg/dL 70-105 (test wmus=070) CALCIUM (BEAKER) (test 7.6 mg/dL 8.4-10.2 jtlo=980) EGFR (BEAKER) (test 141 mL/min/1.73 sq m ESTIMATED GFR IS NOT kfys=3849) ACCURATE CREATININE CLEARANCE IN PREDICTING GLOMERULAR FILTRATION RATE. ESTIMATED GFR IS NOT APPLICABLE FOR DIALYSIS PATIENTS. [id number] 05:29:00 Test Item Value Reference Range Comments PHOSPHORUS (BEAKER) (test cwst=395) 1.7 mg/dL 2.3-4.7 [id number] 05:29:00 Test Item Value Reference Range Comments MAGNESIUM (BEAKER) (test lbvc=848) 1.9 mg/dL 1.6-2.6 HEPATIC FUNCTION [id number] 05:29:00 Test Item Value Reference Range Comments TOTAL PROTEIN (BEAKER) (test zuxn=194) 4.8 gm/dL 6.0-8.3 ALBUMIN (BEAKER) (test akul=2408) 2.4 g/dL 3.5-5.0 BILIRUBIN TOTAL (BEAKER) (test ieva=215) 0.8 mg/dL 0.2-1.2 BILIRUBIN DIRECT (BEAKER) (test scku=149) 0.5 mg/dL 0.1-0.5 ALKALINE PHOSPHATASE (BEAKER) (test pwgh=943) 590 U/L 40-150 AST (SGOT) (BEAKER) (test tjcj=257) 55 U/L 5-34 ALT (SGPT) (BEAKER) (test frwx=042) 64 U/L 6-55 CBC (HEMOGRAM ONLY)2019-07-12 05:02:00 Test Item Value Reference Range Comments WHITE BLOOD CELL COUNT (BEAKER) (test gogl=806) 4.4 K/ L 3.5-10.5 RED BLOOD CELL COUNT (BEAKER) (test zxnw=514) 3.80 M/ L 4.63-6.08 HEMOGLOBIN (BEAKER) (test wyvs=214) 11.8 GM/DL 13.7-17.5 HEMATOCRIT (BEAKER) (test ziai=702) 35.9 % 40.1-51.0 MEAN CORPUSCULAR VOLUME (BEAKER) (test bxex=492) 94.5 fL 79.0-92.2 MEAN CORPUSCULAR HEMOGLOBIN (BEAKER) (test 31.1 pg 25.7-32.2 yrzw=351) MEAN CORPUSCULAR HEMOGLOBIN CONC (BEAKER) (test 32.9 GM/DL 32.3-36.5 ctri=326) RED CELL DISTRIBUTION WIDTH (BEAKER) (test 17.5 % 11.6-14.4 evqv=468) PLATELET COUNT (BEAKER) (test uzqd=690) 81 K/CU MM 150-450 MEAN PLATELET VOLUME (BEAKER) (test rpsr=291) 10.2 fL 9.4-12.4 NUCLEATED RED BLOOD CELLS (BEAKER) (test 0 /100 WBC 0-0 fjms=158) MR, ABDOMEN, [id number] 11:11:00FINAL REPORT MRI of the abdomen, MRCP. MEDICAL HISTORY: Obstructed bile duct.COMPARISON STUDY: None available. TECHNIQUE: Multiplanar, multisequence images of the abdomen were acquired without the administration of intravenous gadolinium as per the MRCP protocol. Three-dimensional reconstructions were acquired and utilized by the dictating radiologist at the time of interpretation. FINDINGS: A mild to moderate left-sided and trace right-sided pleural effusion are seen. The abdomen is limited by lack of contrast. Artifact from the ascites also limits assessment. The liver demonstrates a mildly nodular contour. No obvious masses are seen on this noncontrast study. The spleen is mildly enlarged measuring 13.2 cm in length. Mild to moderate ascites is noted. The portal vein isdistended measuring 1.5 cm. The pancreas is suboptimally seen. However, it appears atrophic. Both kidneys are unremarkable. There is no adrenal abnormality. There is diffuse anasarca. The aorta is dilated measuring 3.6 x 2.6 cm in maximal transverse diameter. No suspicious adenopathy is seen. MRCP demonstrates distention of the gallbladder measuring 4.7 cm in maximal transverse diameter. Extensive cholelithiasis is seen. The CBD is dilated measuring 1.9 cm. There is significant intrahepatic biliary dilatation. No definite choledocholithiasis is seen but a small stone could be obscured from view. Nopancreatic ductal dilatation is seen. The visualized osseous structures demonstrate degenerative changes. IMPRESSION:1. Limited study as there is extensive artifact from the ascites.2. Nodularity of the hepatic contour and mild splenomegaly.3. Significant intra and extra hepatic biliary dilatation with cholelithiasis. No definite choledocholithiasis seen. A distal biliary stricture cannot be excluded.4. Atrophic changes in the pancreas which is not well seen. Further assessment with a contrast-enhanced pancreatic protocol CT scan is recommended to exclude a pancreatic mass.5. Mild to moderate ascites and diffuse anasarca.6. Bilateral pleural effusions, larger on the left side.7. An abdominal aortic aneurysm measures 3.6 cm in diameter. A follow-up examination is recommended every 2 years. Signed: Juvencio Monaco MDReport Verified Date/Time: 07/11/2019 11:11:09 Reading Location: [facility] [id number] Ortho Consult Reading Room Electronically signed by: JUVENCIO MONACO M.D. on 06/2019 11:11 AMHEPATIC FUNCTION [id number] 05:43:00 Test Item Value Reference Range Comments TOTAL PROTEIN (BEAKER) (test hioj=303) 4.6 gm/dL 6.0-8.3 ALBUMIN (BEAKER) (test exou=7778) 2.6 g/dL 3.5-5.0 BILIRUBIN TOTAL (BEAKER) (test yigh=927) 0.9 mg/dL 0.2-1.2 BILIRUBIN DIRECT (BEAKER) (test euww=796) 0.6 mg/dL 0.1-0.5 ALKALINE PHOSPHATASE (BEAKER) (test doaf=262) 686 U/L 40-150 AST (SGOT) (BEAKER) (test zexm=789) 85 U/L 5-34 ALT (SGPT) (BEAKER) (test surs=317) 83 U/L 6-55 URINALYSIS W/ REFLEX URINE [id number] 17:43:00 Test Item Value Reference Range Comments COLOR (BEAKER) (test zzwj=237) Yellow CLARITY (BEAKER) (test uqjx=925) Clear SPECIFIC GRAVITY UA (BEAKER) (test nalr=947) > 1.001-1.035 PH UA (BEAKER) (test gfwg=871) 6.0 5.0-8.0 PROTEIN UA (BEAKER) (test ubqf=126) 30 mg/dL Negative GLUCOSE UA (BEAKER) (test hwut=970) Negative Negative KETONES UA (BEAKER) (test eeoz=710) Negative Negative BILIRUBIN UA (BEAKER) (test ripc=838) Negative Negative BLOOD UA (BEAKER) (test vwqd=993) Negative Negative NITRITE UA (BEAKER) (test srhy=974) Negative Negative LEUKOCYTE ESTERASE UA (BEAKER) (test fjkn=971) Negative Negative UROBILINOGEN UA (BEAKER) (test amev=293) 2.0 mg/dL 0.2-1.0 RBC UA (BEAKER) (test kcks=239) 1 /HPF WBC UA (BEAKER) (test wtef=939) 2 /HPF MUCUS (BEAKER) (test orvy=3303) Many SQUAMOUS EPITHELIAL (BEAKER) (test nzts=527) < /HPF HYALINE CASTS (BEAKER) (test ojeq=353) 4 /LPF SOURCE(BEAKER) (test qrnt=9226) BASIC METABOLIC [id number] 16:04:00 Test Item Value Reference Range Comments SODIUM (BEAKER) (test 141 meq/L 136-145 lwjj=986) POTASSIUM (BEAKER) (test 4.0 meq/L 3.5-5.1 Specimen moderately uyhn=516) hemolyzed CHLORIDE (BEAKER) (test 106 meq/L 98-107 vrwy=543) CO2 (BEAKER) (test 20 meq/L 22-29 ccob=494) BLOOD UREA NITROGEN 18 mg/dL 7-21 (BEAKER) (test xljz=235) CREATININE (BEAKER) (test 0.48 mg/dL 0.57-1.25 Specimen moderately xhrh=972) hemolyzed GLUCOSE RANDOM (BEAKER) 79 mg/dL 70-105 (test hdpd=786) CALCIUM (BEAKER) (test 8.0 mg/dL 8.4-10.2 rjot=294) EGFR (BEAKER) (test 172 mL/min/1.73 sq m ESTIMATED GFR IS NOT thij=9343) ACCURATE CREATININE CLEARANCE IN PREDICTING GLOMERULAR FILTRATION RATE. ESTIMATED GFR IS NOT APPLICABLE FOR DIALYSIS PATIENTS. [id number] 15:41:00 Test Item Value Reference Range Comments PHOSPHORUS (BEAKER) (test 1.5 mg/dL 2.3-4.7 Specimen moderately hemolyzed nkxn=455) [id number] 15:17:00 Test Item Value Reference Range Comments MAGNESIUM (BEAKER) (test 1.9 mg/dL 1.6-2.6 Specimen moderately hemolyzed ofyo=773) HEPATIC FUNCTION [id number] 15:17:00 Test Item Value Reference Range Comments TOTAL PROTEIN (BEAKER) (test 5.3 gm/dL 6.0-8.3 Specimen moderately hemolyzed wwen=079) ALBUMIN (BEAKER) (test 2.7 g/dL 3.5-5.0 Specimen moderately hemolyzed ibkb=3941) BILIRUBIN TOTAL (BEAKER) (test 1.1 mg/dL 0.2-1.2 Specimen moderately hemolyzed devv=964) BILIRUBIN DIRECT (BEAKER) 0.4 mg/dL 0.1-0.5 Specimen moderately hemolyzed (test ztge=012) ALKALINE PHOSPHATASE (BEAKER) 818 U/L 40-150 (test bwxe=392) AST (SGOT) (BEAKER) (test 150 U/L 5-34 Specimen moderately hemolyzed ocfm=963) ALT (SGPT) (BEAKER) (test 122 U/L 6-55 Specimen moderately hemolyzed qpcf=243) [id number] 15:17:00 Test Item Value Reference Range Comments LIPASE (BEAKER) (test rofr=745) 5 U/L 8-78 [id number] 13:11:00 Test Item Value Reference Range Comments PARTIAL THROMBOPLASTIN TIME (BEAKER) (test 34.3 seconds 22.5-36.0 abfw=049) PROTHROMBIN [id number] 13:10:00 Test Item Value Reference Range Comments PROTIME (BEAKER) (test sdqg=753) 13.6 seconds 11.9-14.2 INR (BEAKER) (test wcar=784) 1.1 <=5.9 Effective 01/27/2019: PT Reference Range ChangeNew: 11.9-14.2 Previous: 11.7- 14.7RECOMMENDED COUMADIN/WARFARIN INR THERAPY RANGESSTANDARD DOSE: 2.0-3.0 Includes: PROPHYLAXIS for venous thrombosis, systemic embolization; TREATMENT for venous thrombosis and/or pulmonary embolus.HIGH RISK: Target INR is2.5-3.5 for patients wiht mechanical heart valves.CBC W/PLT COUNT & AUTO [id number] 12:56:00 Test Item Value Reference Range Comments WHITE BLOOD CELL COUNT (BEAKER) (test accp=251) 6.6 K/ L 3.5-10.5 RED BLOOD CELL COUNT (BEAKER) (test dwcw=407) 4.33 M/ L 4.63-6.08 HEMOGLOBIN (BEAKER) (test ghkh=671) 13.6 GM/DL 13.7-17.5 HEMATOCRIT (BEAKER) (test tizh=619) 40.8 % 40.1-51.0 MEAN CORPUSCULAR VOLUME (BEAKER) (test hcvr=818) 94.2 fL 79.0-92.2 MEAN CORPUSCULAR HEMOGLOBIN (BEAKER) (test 31.4 pg 25.7-32.2 eibe=145) MEAN CORPUSCULAR HEMOGLOBIN CONC (BEAKER) (test 33.3 GM/DL 32.3-36.5 ctrs=505) RED CELL DISTRIBUTION WIDTH (BEAKER) (test 17.4 % 11.6-14.4 ajrz=009) PLATELET COUNT (BEAKER) (test sphu=381) 86 K/CU MM 150-450 MEAN PLATELET VOLUME (BEAKER) (test scek=566) 10.7 fL 9.4-12.4 NUCLEATED RED BLOOD CELLS (BEAKER) (test 0 /100 WBC 0-0 qssh=592) NEUTROPHILS RELATIVE PERCENT (BEAKER) (test 80 % rwlh=942) LYMPHOCYTES RELATIVE PERCENT (BEAKER) (test 10 % sadq=896) MONOCYTES RELATIVE PERCENT (BEAKER) (test 8 % ilot=680) EOSINOPHILS RELATIVE PERCENT (BEAKER) (test 1 % bddj=218) BASOPHILS RELATIVE PERCENT (BEAKER) (test 1 % ccuj=166) NEUTROPHILS ABSOLUTE COUNT (BEAKER) (test 5.27 K/ L 1.78-5.38 fjrb=717) LYMPHOCYTES ABSOLUTE COUNT (BEAKER) (test 0.68 K/ L 1.32-3.57 wuos=084) MONOCYTES ABSOLUTE COUNT (BEAKER) (test wjsj=175) 0.54 K/ L 0.30-0.82 EOSINOPHILS ABSOLUTE COUNT (BEAKER) (test 0.05 K/ L 0.04-0.54 mohq=099) BASOPHILS ABSOLUTE COUNT (BEAKER) (test pthy=440) 0.03 K/ L 0.01-0.08 IMMATURE GRANULOCYTES-RELATIVE PERCENT (BEAKER) 0 % 0-1 (test jxgc=7355)
[2019-07-15 21:46] LABS: Urine Blood NEGATIVE (NEG); Urine Glucose NEGATIVE (NEG); Urine Protein 2+ (NEG); Urine Specific Gravity 1.025 (1.005-1.030); Urine pH 6.5 (5.0-7.0)
[2019-07-15] MEDS ORDERED: NA CHLORIDE 0.9% 500 ML ONE (21:59)
[2019-07-15 22:20] LABS: BUN Blood Urea Nitrogen 19 mg/dL (7-18); Bicarbonate 29 mmol/L (21-32); Glucose Level 99 mg/dL (74-106); Potassium 3.5 mmol/L (3.5-5.1); Sodium Level 141 mmol/L (136-145)
--- NOTE | 2019-07-15 22:58 | ER ---
Nurse's Notes [facility] Name: Zachariah Ball Age: 73 yrs Sex: Male : 1945 Arrival Date: 07/15/2019 Time: 21:14 Bed 5 Private MD: Diagnosis: Urinary Retention Presentation: 07/15 21:20 Presenting complaint: Patient states: Was in ED on Friday with fever and and DC home. ao Today C/O unable to urinate. Patient also C/O abdominal pain 06/10. Patient reports Abdominal CA. Transition of care: patient was not received from another setting of care. Onset of symptoms is unknown. Risk Assessment: Do you want to hurt yourself or someone else? Patient reports no desire to harm self or others. Initial Sepsis Screen: Does the patient meet any 2 criteria? No. Patient's initial sepsis screen is negative. Does the patient have a suspected source of infection? No. Patient's initial sepsis screen is negative. Care prior to arrival: None. 21:20 Method Of Arrival: Wheelchair ao 21:20 Acuity: MONSE 3 ao Historical: - Allergies: 21:24 No Known Allergies; rr5 - Home Meds: 21:24 Amitiza 8 mcg Oral cap as needed for constipation [Active]; amlodipine 2.5 mg tab 1 tab ao once daily [Active]; Benicar HCT 40-25 mg Oral tab 1 tab once daily [Active]; capecitabine 500 mg Oral tab take 2 tabs BID on Friday-Friday weekly with radiation therapy [Active]; Carafate 1 gram Oral tab 1 tab 4 times per day [Active]; chlorpheniramine maleate 4 mg Oral tab daily [Active]; Dexilant 60 mg Oral CpDB 1 cap once daily [Active]; diclofenac sodium 75 mg Oral TbEC 1 tab 2 times per day [Active]; finasteride 5 mg Oral tab 1 tab once daily [Active]; fluticasone 50 mcg/actuation nasal spsn 1 spray once daily [Active]; gemfibrozil 600 mg Oral tab 1 tab 2 times per day [Active]; Iron 65mg (Nature Made) once a day daily [Active]; loratadine 10 mg Oral tab 1 tab once daily [Active]; magnesium oxide 250 mg Oral tab daily [Active]; niacin 500 mg Oral cpER [Active]; omeprazole 40 mg Oral cpDR 1 cap once daily [Active]; potassium chloride 20 mEq Oral TbTQ 1 tab once daily [Active]; prochlorperazine maleate 5 mg Oral tab 1-2 tabs every 8 hours PRN for nausea [Active]; Protonix 40 mg Oral TbEC 1 tab 2 times per day [Active]; PROTEASE once a week [Active]; STOOL SOFTNER [Active]; sucralfate 1 gram Oral tab 1 tab 4 times per day [Active]; tamsulosin 0.4 mg Oral cp24 1 cap once daily [Active]; - PMHx: 21:24 ADD/ADHD; Anemia; Chemo and Radiation Tx (Started August 2016/Diagnosed with Stomach ao Cancer May 2016); Hypertension; neuropathy; stomach cancer; - PSHx: 21:24 None; ao - Immunization history:: Adult Immunizations up to date. - Social history:: Smoking status: Patient/guardian denies using tobacco, Patient/guardian denies using alcohol, street drugs. - Ebola Screening: : Patient negative for fever greater than or equal to 101.5 degrees Fahrenheit, and additional compatible Ebola Virus Disease symptoms Patient denies exposure to infectious person Patient denies travel to an Ebola-affected area in the 21 days before illness onset. Screenin:27 Abuse screen: Denies threats or abuse. Denies injuries from another. Nutritional ao screening: No deficits noted. Tuberculosis screening: Fall Risk None identified. Assessment: 21:25 General: Appears in no apparent distress. uncomfortable, slender, well groomed, well ao developed, Behavior is calm, cooperative. Pain: Complains of pain in abdomen Pain does not radiate. Neuro: Level of Consciousness is awake, alert, obeys commands, Oriented to person, place, time, situation, Appropriate for age Moves all extremities. Full function Speech is normal. Cardiovascular: Heart tones S1 S2 Capillary refill < 3 seconds Patient's skin is warm and dry. Respiratory: Airway is patent Respiratory effort is even, unlabored, Respiratory pattern is regular, symmetrical. GI: No signs and/or symptoms were reported involving the gastrointestinal system. Abdomen is flat. : Reports inability to void, since today pain in suprapubic area. EENT: No signs and/or symptoms were reported regarding the EENT system. Derm: No signs and/or symptoms reported regarding the dermatologic system. Musculoskeletal: Circulation, motion, and sensation intact. Range of motion:. 22:20 Reassessment: Patient appears in no apparent distress at this time. Patient is alert, rr5 oriented x 3, equal unlabored respirations, skin warm/dry/pink. no complaints made. Patient states feeling better. Patient states symptoms have improved. 23:12 Reassessment: Patient appears in no apparent distress at this time. Patient is alert, rr5 oriented x 3, equal unlabored respirations, skin warm/dry/pink. discharge instruction and Ziegler catheter care explained without complaints made, verbalized understanding. Patient states feeling better. Patient states symptoms have improved. Vital Signs: 21:24 BP 124 / 78; Pulse 93; Resp 18; Temp 97.9; Pulse Ox 96% on R/A; Weight 58.97 kg (R); ao Height 5 ft. 2 in. (157.48 cm) (R); Pain 10/10; 22:54 BP 136 / 84; Pulse 85; Resp 16; Pulse Ox 98% on R/A; rr5 23:13 BP 131 / 75; Pulse 80; Resp 19; Temp 98; Pulse Ox 99% ; rr5 21:24 Body Mass Index 23.78 (58.97 kg, 157.48 cm) ao ED Course: 21:14 Patient arrived in ED. cf2 21:15 Shady Nazario PA is PHCP. jmm 21:15 Zachery Guido MD is Attending Physician. jmm 21:16 Ha Patel, JULIO is Primary Nurse. rr5 21:20 Bladder scan completed. 400 ml. rr5 21:22 Triage completed. ao 21:25 Arm band placed on right wrist. Patient placed in an exam room, on a stretcher, on ao lacquer coater, on pulse oximetry. 21:27 Patient has correct armband on for positive identification. Fall risk band placed. ao Placed in gown. Bed in low position. Pulse ox on. NIBP on. 21:30 Ziegler cath inserted, using sterile technique, 16 Fr., by nv, balloon inflated, urine rr5 specimen collected. 21:45 Inserted saline lock: 20 gauge in right forearm, using aseptic technique. ao 22:57 Raj White MD is Referral Physician. jmm 23:05 Bladder scan completed. 52 ml. urine bag changed to leg bag. rr5 23:13 No provider procedures requiring assistance completed. IV discontinued, intact, rr5 bleeding controlled, No redness/swelling at site. Pressure dressing applied. Administered Medications: 22:04 Drug: NS 0.9% 500 ml Route: IV; Rate: bolus; Site: right forearm; ao 23:00 Follow up: Response: No adverse reaction; IV Status: Completed infusion; IV Intake: rr5 500ml Intake: 23:00 IV: 500ml; Total: 500ml. rr5 Outcome: 22:57 Discharge ordered by . mari 23:15 Discharged to home via wheelchair, with family. rr5 23:15 Condition: stable 23:15 Discharge instructions given to patient, family, Instructed on discharge instructions, follow up and referral plans. medication usage, ziegler catheter care. Demonstrated understanding of instructions, follow-up care, medications, Ziegler catheter care Prescriptions given X 2. 23:18 Patient left the ED. rr5 Signatures: Shday Nazario PA PA jmm Ortiz, Alex RN RN Ha Mayers RN RN rr5 David Mcintosh cf2
--- NOTE | 2019-07-15 22:58 | EDPHYS ---
Physician Documentation [facility] Name: Zachariah Ball Age: 73 yrs Sex: Male : 1945 Arrival Date: 07/15/2019 Time: 21:14 Bed 5 Private MD: KELLY Physician Zachery Guido HPI: 07/15 21:34 This 73 yrs old Male presents to ER via Wheelchair with complaints of Urinary jmm Problem. 21:34 Onset: The symptoms/episode began/occurred today. Modifying factors: The symptoms are jmm alleviated by nothing, the symptoms are aggravated by nothing. This is a 73 year old male with a history of gastric cancer that presents to the ED with complaints of abdominal pain and inability to urinate. Patient states he has an enlarged prostate and has had issues with urinary retention in the past. Denies vomiting but has not wanted to eat today. . Historical: - Allergies: 21:24 No Known Allergies; rr5 - Home Meds: 21:24 Amitiza 8 mcg Oral cap as needed for constipation [Active]; amlodipine 2.5 mg tab 1 tab ao once daily [Active]; Benicar HCT 40-25 mg Oral tab 1 tab once daily [Active]; capecitabine 500 mg Oral tab take 2 tabs BID on Friday-Friday weekly with radiation therapy [Active]; Carafate 1 gram Oral tab 1 tab 4 times per day [Active]; chlorpheniramine maleate 4 mg Oral tab daily [Active]; Dexilant 60 mg Oral CpDB 1 cap once daily [Active]; diclofenac sodium 75 mg Oral TbEC 1 tab 2 times per day [Active]; finasteride 5 mg Oral tab 1 tab once daily [Active]; fluticasone 50 mcg/actuation nasal spsn 1 spray once daily [Active]; gemfibrozil 600 mg Oral tab 1 tab 2 times per day [Active]; Iron 65mg (Nature Made) once a day daily [Active]; loratadine 10 mg Oral tab 1 tab once daily [Active]; magnesium oxide 250 mg Oral tab daily [Active]; niacin 500 mg Oral cpER [Active]; omeprazole 40 mg Oral cpDR 1 cap once daily [Active]; potassium chloride 20 mEq Oral TbTQ 1 tab once daily [Active]; prochlorperazine maleate 5 mg Oral tab 1-2 tabs every 8 hours PRN for nausea [Active]; Protonix 40 mg Oral TbEC 1 tab 2 times per day [Active]; PROTEASE once a week [Active]; STOOL SOFTNER [Active]; sucralfate 1 gram Oral tab 1 tab 4 times per day [Active]; tamsulosin 0.4 mg Oral cp24 1 cap once daily [Active]; - PMHx: 21:24 ADD/ADHD; Anemia; Chemo and Radiation Tx (Started August 2016/Diagnosed with Stomach ao Cancer May 2016); Hypertension; neuropathy; stomach cancer; - PSHx: 21:24 None; ao - Immunization history:: Adult Immunizations up to date. - Social history:: Smoking status: Patient/guardian denies using tobacco, Patient/guardian denies using alcohol, street drugs. - Ebola Screening: : Patient negative for fever greater than or equal to 101.5 degrees Fahrenheit, and additional compatible Ebola Virus Disease symptoms Patient denies exposure to infectious person Patient denies travel to an Ebola-affected area in the 21 days before illness onset. ROS: 21:34 Constitutional: Negative for fever, chills, and weight loss, Cardiovascular: Negative jmm for chest pain, palpitations, and edema, Respiratory: Negative for shortness of breath, cough, wheezing, and pleuritic chest pain. 21:34 Abdomen/GI: Positive for abdominal pain. 21:34 : Positive for urinary symptoms. 21:34 All other systems are negative. Exam: 21:34 Constitutional: This is a well developed, well nourished patient who is awake, alert, jmm and in no acute distress. Head/Face: atraumatic. Eyes: EOMI, no conjunctival erythema appreciated ENT: Moist Mucus Membranes Neck: Trachea midline, Supple Chest/axilla: Normal chest wall appearance and motion. Cardiovascular: Regular rate and rhythm. No edema appreciated Respiratory: Normal respirations, no respiratory distress appreciated 21:34 Abdomen/GI: Inspection: abdomen appears normal, Bowel sounds: normal, Palpation: soft, mild abdominal tenderness, in the right lower quadrant and left lower quadrant. 21:34 Back: ROM is normal. 21:34 Musculoskeletal/extremity: ROM: intact in all extremities. 21:34 Skin: Appearance: Color: normal in color. 21:34 Neuro: Orientation: is normal, Mentation: is normal, Memory: is normal. 21:34 Psych: Behavior/mood is pleasant, cooperative. Vital Signs: 21:24 BP 124 / 78; Pulse 93; Resp 18; Temp 97.9; Pulse Ox 96% on R/A; Weight 58.97 kg (R); ao Height 5 ft. 2 in. (157.48 cm) (R); Pain 10/10; 22:54 BP 136 / 84; Pulse 85; Resp 16; Pulse Ox 98% on R/A; rr5 23:13 BP 131 / 75; Pulse 80; Resp 19; Temp 98; Pulse Ox 99% ; rr5 21:24 Body Mass Index 23.78 (58.97 kg, 157.48 cm) ao MDM: 21:17 Patient medically screened. [email or web address] 22:55 Data reviewed: vital signs, nurses notes. Counseling: I had a detailed discussion with mari the patient and/or guardian regarding: the historical points, exam findings, and any diagnostic results supporting the discharge/admit diagnosis, lab results, the need for outpatient follow up, to return to the emergency department if symptoms worsen or persist or if there are any questions or concerns that arise at home. ED course: patient states feeling much better. advised to follow up with urology for reevaluation. patient otherwise given strict return precautions. patient understood and agrees with the plan of care. . 07/15 21:29 Order name: BMP; Complete Time: 22:22 [facility] 07/15 21:41 Order name: Urine Dipstick--Ancillary (enter results); Complete Time: 22:02 ar5 07/15 21:29 Order name: Saline Lock; Complete Time: 22:04 [facility] 07/15 21:33 Order name: Urine Dipstick-Ancillary (obtain specimen); Complete Time: 21:43 [facility] 07/15 21:34 Order name: Schmitt; Complete Time: 21:34 rr5 07/15 21:34 Order name: Bladder Scanner; Complete Time: 21:34 rr5 Administered Medications: 22:04 Drug: NS 0.9% 500 ml Route: IV; Rate: bolus; Site: right forearm; ao 23:00 Follow up: Response: No adverse reaction; IV Status: Completed infusion; IV Intake: rr5 500ml Disposition: 07/16 13:54 Co-signature as Attending Physician, Zachery Guido MD I agree with the assessment and [facility] plan of care. Disposition: 07/15/19 22:57 Discharged to Home. Impression: Urinary Retention. - Condition is Stable. - Discharge Instructions: Schmitt Catheter Care, Adult, Acute Urinary Retention, Male. - Prescriptions for Cipro 250 mg Oral Tablet - take 2 tablet by ORAL route every 12 hours; 20 tablet. Flomax 0.4 mg Oral Capsule, Sust. Release 24 hr - take 1 capsule by ORAL route once daily 1/2 hour following the same meal each day; 30 capsule. - Medication Reconciliation Form, Thank You Letter, Antibiotic Education, Prescription Opioid Use form. - Follow up: Raj White MD; When: 2 - 3 days; Reason: Recheck today's complaints, Continuance of care, Re-evaluation by your physician. Signatures: Dispatcher [employer] EDMS Zachery Guido MD MD cha Mickail, Joel, PA PA jmm Ortiz, Alex, RN RN Ha Mayers RN RN rr5 Corrections: (The following items were deleted from the chart) 07/15 23:18 22:57 07/15/2019 22:57 Discharged to Home. Impression: Urinary Retention. Condition is rr5 Stable. Forms are Medication Reconciliation Form, Thank You Letter, Antibiotic Education, Prescription Opioid Use. Follow up: Raj White; When: 2 - 3 days; Reason: Recheck today's complaints, Continuance of care, Re-evaluation by your physician. mari
[2019-07-15 23:36] VITALS: TEMP 97.9
[2019-07-15 23:45] VITALS: BP 136/84; O2SAT 98
== END 2019-07-15 23:18 | disposition home or self-care (01) ==
LOC: ER 21:11
DX: R33.9 Retention of urine, unspecified (principal); I10 Essential (primary) hypertension; F90.9 Attention-deficit hyperactivity disorder, unspecified type; Z85.028 Personal history of other malignant neoplasm of stomach
CPT/HCPCS: 80048; 36415; 81003; J7040; 51702; 96360; 99284